=== PATIENT | female | born 1960 | race Caucasian/White ===

== ENCOUNTER 2019-04-30 01:51 | Emergency (ER) | payer OTHER ==
[~2019-04-30] VITALS: Ht 160 cm; Wt 45.4 kg
[~2019-04-30 01:51] MED LIST: ALBU90OI INH; ALBU90OI6 INH; AMIT50 PO; AMLO10 PO; AMOCLA875 PO; AMOX500 PO; Aspirin325 MG PO; BUPR150T2 PO; Budeprion Xl300 MG PO; Buspirone HCl5 MG PO; CEPH500 PO; FERROUS SULFATE PO; FLUSAL2505 INH; FLUT1DIS5 INH; FOLI1 PO; HYDACE5 PO; IBUP400; IBUP800 PO; LOSA50 PO; METERG.2 PO; METO25 PO; METTREX2.5 PO; MULVITMINE; NEOPOLHCSU; OXYACE5T PO; PENVK500 PO; PHENA200 PO; PRED20 PO; PRED5 PO; PROM25 PO; Percocet 5-3251 EACH PO; RXANTBENOT AU; RXHYDACE PO; RXPHEN200 PO; RXPROM25 PO; RXSULTRIDS PO; SULTRIDS PO; SULTRISS PO; TUDORZA PRESS400 MCG IH; TUDORZA PRESS400 MCG INH; XARELTO10 MG PO
[2019-04-30] MEDS ORDERED: METTREX2.5 PO (02:37)
[2019-04-30 02:42] LABS: Source, Urine Clean Catch
[2019-04-30 02:57] LABS: Appearance, Urine Clear (Clear); Bilirubin, Urine 3+ (Neg); Blood, Urine 5+ (Neg); Color, Urine Orange (P-Yellow); Glucose Qualitative, Urine Neg (Neg); Ketones, Urine Neg (Neg); Leukocyte Esterase, Urine 2+ (Neg); Nitrite, Urine Pos (Neg); Protein, Urine 3+ (Neg); Urobilinogen, Urine 4+ (Normal)
[2019-04-30 03:03] LABS: Bacteria Many /hpf; Mucus Light (0-Heavy); Squamous Epithelial Cells Few /hpf (Few)
[2019-04-30] MEDS ORDERED: Keflex500 MG PO (03:18)
== END 2019-04-30 03:34 | disposition home or self-care (01) ==
LOC: ER 01:51
PROVIDERS: Emergency Medicine
DX: N39.0 Urinary tract infection, site not specified (principal); J44.9 Chronic obstructive pulmonary disease, unspecified; I10 Essential (primary) hypertension; F17.210 Nicotine dependence, cigarettes, uncomplicated; Z79.899 Other long term (current) drug therapy
CPT/HCPCS: 81001; 87086; 99283

== ENCOUNTER → 2021-06-15 | Outpatient (CLI) | payer OTHER ==
[~2021-06-15] MED LIST changes: +Keflex500 MG PO
[2021-06-15 13:48] LABS: BASOPHILS ABSOLUTE AUTO 0.05 K/mm3 (0.00-0.23); BASOPHILS PERCENT AUTO 1 % (0-2); EOSINOPHILS ABSOLUTE AUTO 0.16 K/mm3 (0.00-0.68); EOSINOPHILS PERCENT AUTO 2 % (0-6); Hematocrit 42.6 % (33.0-51.0); Hemoglobin 13.5 g/dL (11.5-16.0); IMMATURE GRAN ABSOLUTE AUTO 0.04 K/mm3 (0.00-0.10); IMMATURE GRAN PERCENT AUTO 1 % (0-1); LYMPHOCYTES ABSOLUTE AUTO 1.46 K/mm3 (0.84-5.20); LYMPHOCYTES PERCENT AUTO 20 % (21-46); MONOCYTES ABSOLUTE AUTO 0.76 K/mm3 (0.16-1.47); MONOCYTES PERCENT AUTO 10 % (4-13); Mean Corpuscular HGB 33.8 pg (26.0-34.0); Mean Corpuscular HGB Conc 31.7 g/dL (31.5-36.5); Mean Corpuscular Volume 107 fL (80-100); Mean Platelet Volume 9.4 fL (9.1-12.4); NEUTROPHILS ABSOLUTE AUTO 4.96 K/mm3 (1.96-9.15); NEUTROPHILS PERCENT AUTO 67 % (41-73); Platelet Count 344 K/mm3 (150-400); RDW Coefficient Variation 15.3 % (11.7-14.2); RDW Standard Deviation 60.2 fL (35.1-46.3); White Blood Cell Count 7.43 K/mm3 (4.00-11.30)
== END | disposition home or self-care (01) ==
LOC: LAB SHORT 08:50 → LAB 08:50
PROVIDERS: Internal Medicine Rheumatology
DX: M05.9 Rheumatoid arthritis with rheumatoid factor, unspecified (principal)
CPT/HCPCS: 84450; 85025; 85651

== ENCOUNTER → 2021-09-14 | Outpatient (CLI) | payer OTHER ==
[2021-09-14 15:06] LABS: BASOPHILS ABSOLUTE AUTO 0.03 K/mm3 (0.00-0.23); BASOPHILS PERCENT AUTO 0 % (0-2); EOSINOPHILS ABSOLUTE AUTO 0.13 K/mm3 (0.00-0.68); EOSINOPHILS PERCENT AUTO 1 % (0-6); Hemoglobin 14.4 g/dL (11.5-16.0); IMMATURE GRAN ABSOLUTE AUTO 0.02 K/mm3 (0.00-0.10); IMMATURE GRAN PERCENT AUTO 0 % (0-1); LYMPHOCYTES ABSOLUTE AUTO 1.12 K/mm3 (0.84-5.20); LYMPHOCYTES PERCENT AUTO 12 % (21-46); MONOCYTES ABSOLUTE AUTO 0.72 K/mm3 (0.16-1.47); MONOCYTES PERCENT AUTO 8 % (4-13); Mean Corpuscular HGB 32.1 pg (26.0-34.0); Mean Corpuscular HGB Conc 31.3 g/dL (31.5-36.5); Mean Corpuscular Volume 103 fL (80-100); NEUTROPHILS ABSOLUTE AUTO 7.64 K/mm3 (1.96-9.15); NEUTROPHILS PERCENT AUTO 79 % (41-73); Platelet Count 343 K/mm3 (150-400); RDW Coefficient Variation 14.2 % (11.7-14.2); RDW Standard Deviation 54.2 fL (35.1-46.3); Red Blood Cell Count 4.48 M/mm3 (3.80-5.20); White Blood Cell Count 9.66 K/mm3 (4.00-11.30)
== END | disposition home or self-care (01) ==
LOC: LAB 08:10 → LAB SHORT 08:10
PROVIDERS: Internal Medicine Rheumatology
DX: M05.9 Rheumatoid arthritis with rheumatoid factor, unspecified (principal)
CPT/HCPCS: 84450; 85025; 85651

== ENCOUNTER → 2022-09-06 | Outpatient (CLI) | payer OTHER ==
[2022-09-06 18:50] LABS: BASOPHILS ABSOLUTE AUTO 0.04 K/mm3 (0.00-0.23); BASOPHILS PERCENT AUTO 1 % (0-2); EOSINOPHILS ABSOLUTE AUTO 0.16 K/mm3 (0.00-0.68); EOSINOPHILS PERCENT AUTO 3 % (0-6); Hematocrit 46.8 % (33.0-51.0); Hemoglobin 14.5 g/dL (11.5-16.0); IMMATURE GRAN ABSOLUTE AUTO 0.01 K/mm3 (0.00-0.10); IMMATURE GRAN PERCENT AUTO 0 % (0-1); LYMPHOCYTES ABSOLUTE AUTO 1.01 K/mm3 (0.84-5.20); LYMPHOCYTES PERCENT AUTO 18 % (21-46); MONOCYTES ABSOLUTE AUTO 0.66 K/mm3 (0.16-1.47); MONOCYTES PERCENT AUTO 12 % (4-13); Mean Corpuscular HGB 33.1 pg (26.0-34.0); Mean Corpuscular Volume 107 fL (80-100); Mean Platelet Volume 10.2 fL (9.1-12.4); NEUTROPHILS ABSOLUTE AUTO 3.75 K/mm3 (1.96-9.15); NEUTROPHILS PERCENT AUTO 67 % (41-73); Platelet Count 253 K/mm3 (150-400); RDW Standard Deviation 62.5 fL (35.1-46.3); Red Blood Cell Count 4.38 M/mm3 (3.80-5.20); White Blood Cell Count 5.63 K/mm3 (4.00-11.30)
[2022-09-06 21:49] LABS: Albumin, Blood 3.3 g/dL (3.4-5.0); Albumin/Globulin Ratio 0.9 (0.8-1.8); Bilirubin, Total 0.3 mg/dL (0.1-1.0); Bun/Creatinine Ratio 19.6 (12.0-20.0); Calcium, Blood 9.1 mg/dL (8.5-10.1); Creatinine, Blood 0.51 mg/dL (0.40-1.00); Globulin, Blood 3.8 g/dL (2.2-4.0); Potassium, Blood 3.7 mmol/L (3.5-5.5); Total Protein, Blood 7.1 g/dL (6.4-8.2)
== END ==
LOC: LAB 15:43 → LAB SHORT 15:43
PROVIDERS: Internal Medicine Rheumatology
DX: M05.9 Rheumatoid arthritis with rheumatoid factor, unspecified (principal)
CPT/HCPCS: 80053; 85025; 85651

== ENCOUNTER 2022-11-30 19:08 | Inpatient (IN) | payer OTHER ==
[~2022-11-30] VITALS: Ht 170.2 cm; Wt 42.3 kg
[2022-11-30 19:27] LABS: BASOPHILS ABSOLUTE AUTO 0.04 K/mm3 (0.00-0.23); BASOPHILS PERCENT AUTO 1 % (0-2); EOSINOPHILS ABSOLUTE AUTO 0.01 K/mm3 (0.00-0.68); EOSINOPHILS PERCENT AUTO 0 % (0-6); Hematocrit 45.4 % (33.0-51.0); Hemoglobin 14.8 g/dL (11.5-16.0); IMMATURE GRAN ABSOLUTE AUTO 0.04 K/mm3 (0.00-0.10); IMMATURE GRAN PERCENT AUTO 1 % (0-1); LYMPHOCYTES ABSOLUTE AUTO 0.82 K/mm3 (0.84-5.20); LYMPHOCYTES PERCENT AUTO 9 % (21-46); MONOCYTES ABSOLUTE AUTO 0.66 K/mm3 (0.16-1.47); MONOCYTES PERCENT AUTO 8 % (4-13); Mean Corpuscular HGB 35.4 pg (26.0-34.0); Mean Corpuscular HGB Conc 32.6 g/dL (31.5-36.5); Mean Corpuscular Volume 109 fL (80-100); Mean Platelet Volume 11.2 fL (9.1-12.4); NEUTROPHILS PERCENT AUTO 82 % (41-73); Platelet Count 262 K/mm3 (150-400); RDW Coefficient Variation 15.3 % (11.7-14.2); RDW Standard Deviation 60.9 fL (35.1-46.3); Red Blood Cell Count 4.18 M/mm3 (3.80-5.20); White Blood Cell Count 8.77 K/mm3 (4.00-11.30)
[2022-11-30 19:49] LABS: Base Excess Venous -3.8 mmol/L; Bicarbonate Venous 20.5 mmol/L (24.0-30.0); PCO2 Venous 59.3 mmHg (38-42); pH Blood Venous 7.21 (7.34-7.37)
[2022-11-30 20:45] LABS: Influenza A, PCR NEGATIVE (NEGATIVE); Influenza B, PCR NEGATIVE (NEGATIVE); Resp Syncytial Virus, PCR NEGATIVE (NEGATIVE); SARS-Cov-2 (COVID-19) PCR, MMC NEGATIVE (NEGATIVE)
[2022-11-30 21:10] LABS: Albumin, Blood 3.3 g/dL (3.4-5.0); Albumin/Globulin Ratio 0.9 (0.8-1.8); Bilirubin, Total 0.4 mg/dL (0.1-1.0); Bun/Creatinine Ratio 19.7 (12.0-20.0); Creatinine, Blood 0.61 mg/dL (0.40-1.00); Globulin, Blood 3.7 g/dL (2.2-4.0); Potassium, Blood 3.8 mmol/L (3.5-5.5)
[2022-11-30 21:33] LABS: Base Excess Venous -2.2 mmol/L; Bicarbonate Venous 21.8 mmol/L (24.0-30.0); PCO2 Venous 57.4 mmHg (38-42); pH Blood Venous 7.24 (7.34-7.37)
--- NOTE | 2022-11-30 23:20 | NUR ---
PT TRANSFERRED FROM ER. REPORT RECIEVED FROM TEETEE HERNANDES. PT IS A&O X4. BIPAP IN PLACE AND PT TOLERATING. RR 20'S, SPO2 >94%. IV ACCESS 20GA RAC AND 20GA BILATERAL FOREARMS. PRECEDEX 0.2MCG/KG/HR. NS 100MLS/HR.
[2022-12-01 00:19] LABS: Base Excess Venous -3.3 mmol/L; Bicarbonate Venous 21.6 mmol/L (24.0-30.0); PCO2 Venous 43.1 mmHg (38-42); pH Blood Venous 7.33 (7.34-7.37)
[2022-12-01 03:26] LABS: BASOPHILS ABSOLUTE AUTO 0.02 K/mm3 (0.00-0.23); BASOPHILS PERCENT AUTO 0 % (0-2); EOSINOPHILS PERCENT AUTO 0 % (0-6); Hematocrit 41.1 % (33.0-51.0); Hemoglobin 13.1 g/dL (11.5-16.0); IMMATURE GRAN ABSOLUTE AUTO 0.07 K/mm3 (0.00-0.10); IMMATURE GRAN PERCENT AUTO 1 % (0-1); LYMPHOCYTES ABSOLUTE AUTO 0.16 K/mm3 (0.84-5.20); LYMPHOCYTES PERCENT AUTO 3 % (21-46); MONOCYTES ABSOLUTE AUTO 0.08 K/mm3 (0.16-1.47); MONOCYTES PERCENT AUTO 1 % (4-13); Mean Corpuscular HGB 34.9 pg (26.0-34.0); Mean Corpuscular HGB Conc 31.9 g/dL (31.5-36.5); Mean Corpuscular Volume 110 fL (80-100); Mean Platelet Volume 10.1 fL (9.1-12.4); NEUTROPHILS ABSOLUTE AUTO 5.68 K/mm3 (1.96-9.15); NEUTROPHILS PERCENT AUTO 95 % (41-73); Platelet Count 169 K/mm3 (150-400); RDW Coefficient Variation 15.1 % (11.7-14.2); Red Blood Cell Count 3.75 M/mm3 (3.80-5.20); White Blood Cell Count 6.01 K/mm3 (4.00-11.30)
[2022-12-01 03:36] LABS: Bun/Creatinine Ratio 21.6 (12.0-20.0); Calcium, Blood 8.4 mg/dL (8.5-10.1); Creatinine, Blood 0.46 mg/dL (0.40-1.00); Potassium, Blood 4.3 mmol/L (3.5-5.5)
--- NOTE | 2022-12-01 06:15 | NUR ---
PT REQUESTS A BREAK FROM BIPAP. PT SWITCHED TO 3L O2 VIA NC. PRECEDEX ON SB.
--- NOTE | 2022-12-01 06:34 | NUR ---
SUMMARY PT TOLERATED BIPAP UNTIL 15 THEN WAS SWITCHED TO 3L O2 VIA NC. RR 20'S, SPO2 >94%. PRECEDEX 0.2MCG/KG/HR. NS 100MLS/HR. CONTINUOUS CARDIAC MONITORING. HR 100-120. BRIEF EPISODE OF BRADYCARDIA IN THE 40'S. PRECEDEX PUT ON SB. SBP STABLE IN 130'S. MAP >65. PT USING BED CARNES. ABLE TO MAKE NEEDS KNOWN AND USES CALL LIGHT APPROPRIATELY. ASSESSMENTS REMAIN UNCHANGED.
--- NOTE | 2022-12-01 07:44 | NUR ---
UPON REVIEWING PATIENTS RHYTHM, NOTED TO HAVE INVERTED T WAVES. SWITCHED AT AROUND 0130. EKG DONE. WILL REVIEW WITH THIS AM. PT SLEEPING, AWAKENED EASILY FOR EKG, DENIES ANY COMPLAINTS, THANKFUL TO NOT BE WEARING THAT MASK, SHE SAYS.
--- NOTE | 2022-12-01 07:55 | NUR ---
CALL TO FOR UPDATE R/T EKG. PT CONTINUES TO DENY ANY SHORTNESS OF BREATH, ALTHOUGH HER BREATHING LOOKS LABORED. HER SATS ARE MID 90S. HEART RATE VARYING FROM 90-110'S. BP STABLE.
[2022-12-01 09:22] LABS: Anti-Xa UFH, PHA Monitoring <0.10 IU/mL; International Normalized Ratio 0.99; Prothrombin Time Results 10.4 Sec (9.7-11.5)
--- NOTE | 2022-12-01 10:03 | NUR ---
CARMENZA'S FAMILY HAS ARRIVED, UPDATE GIVEN TO FAMILY. PT CONTINUES TO STATE IMPROVEMENT IN HER SYMPTOMS SINCE ARRIVING AT THE HOSPITAL, FAMILY CONFIRMS. PT CONTINUES TO DENY ANY CHEST PAIN. HEART RATE CONTINUES IN THE 100'S. BP REMAINS STABLE, HEPARIN GTT HAS BEEN STARTED.
--- NOTE | 2022-12-01 10:27 | NUR ---
Supportive visit this AM. Spoke with Primary RN Rosette and discussed case. Pt with abnormal EKG and elevated troponins. Pt denies pain. Pt resting in bed and is A&OX4. Pt's SO and son at bedside. Offered therapeutic listening as Pt reports breathing has improved and discusses the anxiety she was experiencing when she first came to the hospital. She reports anxiety has improved. She states being happy in not having to wear the BIPAP mask any longer. Continued supportive visit and brief review of plan of care. Pt agreeable to continued PC visits. Palliative Care will remain available
--- NOTE | 2022-12-01 13:56 | NUR ---
DR. MARCO LARA ROUNDED ON PT. DISCUSSED NEW HEART FAILURE AND PLAN OF CARE. PLANS TO MEDICALLY OPTIMIZE PT IN REGARDS TO BLOOD PRESSURE AND HEART RATE CONTROL WITH PROBABLE ANGIOGRAM IN THE NEXT DAY OR TWO. DISCUSSED HIGH RISK ASSOCIATED WITH ANGIOGRAM FOR THIS PT RELATED TO PT BEING UNDERWEIGHT. PT VERBALIZES UNDERSTANDING OF PLAN OF CARE.
--- NOTE | 2022-12-01 14:46 | NUR ---
HERE TO SEE PATIENT IN CONSULT. PT EXPRESSED SOME QUESTIONS TO BINDERY ASSISTANT AFTER HIS VISIT, QUESTIONS ANSWERED. PT UP TO BSC WITH ASSISTANCE, PT DOES GET SHORT OF BREATH WITH EXERTION. HEART RATE CLIMBS TO 120. MEDICATED PER DR. LARA'S ORDERS, ATTEMPTING TO KEEP SBP @ 140 OR BELOW. PT GIVEN NICOTINE PATCH TO WHICH SHE EXPRESSED THANKFULNESS SHE WAS "STARTING TO GET CRANKY". LEFT PIV SITE WITH HEPARIN INFUSING HAS SMALL BLOOD LEAK UPON RETURN TO BED. ASSESSED.
--- NOTE | 2022-12-01 15:46 | NUR ---
PT RECEIVING BREATHING TREATMENT, SATS IN MID-LOW 80S DURING TREATMENT. PT STATES SHE NEEDS TO USE THE BSC. LOOKS AND FEELS SHORT OF BREATH, PT'S OXYGEN TURNED UP, HEART RATE REMAINS AT 100, SATS NOW 98% WITH PATIENT LYING ON HER SIDE, FAN ON BEDSIDE TABLE.
--- NOTE | 2022-12-01 16:13 | NUR ---
PT NOTED TO HAVE A SIGNIFICANT BRADYCARDIA TO 36 BEATS, UPON PT ASSESSMENT SHE WAS SLEEPING AND DENIES FEELING ANY CHEST PAIN.
--- NOTE | 2022-12-01 17:57 | NUR ---
AFTER DINNER CARMENZA WANTED TO LAY BACK DOWN, NOT FLAT BUT RECLINED. HER SATS WERE STAYING IN THE LOW 80S. TITRATED UP THE OXYGEN TO 9L HFNC, WITH NO CHANGE. THEN INCREASED TO 15L, PT HOVERING AT 89%. RT CALLED FOR ASSISTANCE. PT IS REFUSING TO PUT ON THE BIPAP AT THIS TIME. ABLE TO GET SATS TO MAINTAIN AT 90% FOR NOW.
--- NOTE | 2022-12-01 18:13 | NUR ---
CARMENZA MEDICATED WITH HER DOSE OF SOLU-MEDROL AND A DOSE OF FENTANYL 25MCG. HER SATS ARE CURRENTLY AT 97% AND HER BREATHING IS EASED. BP IS DOWN TO 121/61. HEART RATE REMAINS LOW 100'S. COUGH IS MOIST, OCC RETURNS CLEAR/WHITE. CONTINUES TO DENY ANY CHEST PAIN.
--- NOTE | 2022-12-01 18:36 | NUR ---
PT STATES THAT HER HEADACHE IS IMPROVED SINCE THE FENTANYL DOSE. BREATHING IS BETTER, 15L TURNED DOWN TO 10L AND SATS 98%.
--- NOTE | 2022-12-01 20:18 | NUR ---
ASSUMED CARE OF PT AT 1900 PT RESTING IN BED AWAKE WITH BOYFRIEND MELISSA AT BEDSIDE. NEURO- A/O X4 RESP- 10L HIGH FLOW NC IN PLACE WITH SPO2 @ 95%. PT HAS FREQUENT CONGESTED COUGH WHILE THIS NURSE IN ROOM. PT REPORTS THIS IS BASELINE AT HOME. DYSPNEIC PT USED BEDSIDE COMMODE WITH SPO2 STAYING >92%. CARDIAC-HYPERTENSIVE WITH SBP BETWEEN 130'S-150'S. HR 110'S. GI,- PT IS CONTINENT OF BOWEL AND BLADDER. PT USED BEDSIDE COMMODE AT THIS TIME. HEPARIN RUNNING @ 15MCG/KG/HR. SEE FULL ASSESSMENT FOR FURTHER INFORMATION.
--- NOTE | 2022-12-02 00:34 | NUR ---
FALL AT APPROX 2310 PT WAS BOOSTED UP IN BED BY THIS RN AND RESP THERAPIST WHOM WAS THERE TO GIVE BREATHING TREATMENT. THIS RN THEN LEFT THE ROOM TO ALLOW RT TO DO TREATMENT NEEDED. AT APPROX 2315 THIS RN HEARD PT YELLING OUT LOUDLY. WHEN I ARRIVED IN PT ROOM PT WAS SITTING ON THE FLOOR ON THE LEFT SIDE OF THE PT BED. RESP THERAPY WAS IN ROOM STANDING BETWEEN PT AND MONITOR AT TIME OF FALL. THIS RN ASSESSED AND EVALUATED PT. PT STATED "I HAVE TO PEE" MULTIPLE TIMES. PT THEN URINATED ON THE FLOOR. PT WAS THEN ASSISTED TO BED BY THIS RN AND EH HERNANDES. PT WAS BLE TO GET UP ON HER OWN WITH LITTLE TO NO ASSIST NEEDED. PT DENIED PAIN POST FALL. PT STATED "I DID NOT HIT ANYTHING BUT MY KNEES AND HANDS." PT ALSO STATED " I WAS TRYING TO MOVE MYSELF IN THE BED". PT CONFIRMED WITH THIS RN THAT SHE WAS NOT TRYING TO GET OUT OF BED AT THE TIME OF FALL. NEURO ASSESSMENT DONE WITH NO CHANGES FROM PRIOR ASSESSMENT AT 1930. NO NEW BRUISING OR BLEEDING POST FALL. SLIGHT RESPIRATORY DISTRESS NOTED, HOWEVER NO CHANGE FROM BASELINE UPON EXERTION. BP, HR STABLE AND WITHIN PT NORMAL LIMITS. DR ARROYO, JEISON LEAD RN, AND OSWALD GELLER NURSING MAT PACKER NOTIFIED OF FALL AND OUTCOME.
[2022-12-02 02:13] LABS: PCO2 Arterial 61.4 mmHg (35-45); PO2 Arterial 156 mmHg (80-100)
[2022-12-02 02:15] LABS: pH Blood Arterial 7.29 (7.35-7.45)
--- NOTE | 2022-12-02 02:41 | NUR ---
APPROX 0150 PT RESULTED IN BRADYCHARDIC EPISODE. PT NOT AROUSED BY SOUNDS, STERNAL RUB GIVEN 3 TIMES WITH VERY MINIMAL RESPONSE. PUPILS WITH VERY LITTLE TO ALMOST PINPOINT AT THAT TIME. HR 50'S-60'S AND SPO2 IN MID 70'S%. RT CALLED TO PT ROOM FOR BIPAP ISSUES. 0153 DR ARROYO INFORMED OF PT SITUATION. AT THIS TIME PT STARTED TO AROUSE AND TALK. PUPILS BACK TO BASELINE. ABG ORDERED STAT. 0215 CR[facility] RESULTS CALLED FROM LAB PH OF 7.29. [address] ARROYO REGARDING CRITICAL PH OF 7.29. CONFIRMED CHANGE OF MASK AND BIPAP MACHINE. LESS LEAK IN MASK. VITALS STABLE AND WITHIN PT NORMAL LIMITS. NO NEW ORDERS AT THIS TIME.
--- NOTE | 2022-12-02 06:05 | NUR ---
END OF SHIFT SUMMARY PT DID NOT REST WELL MOST OF THE NIGHT. READ PREVIOUS NOTES ON HYPOXIC EPISODE AND EVENTS PERTAINING. NEURO- A/O X4 NO CHANGES THROUGH THE NIGHT. RESP- SPO2 >92% WHILE ON BIPAP. PT COUGHS FREQUENTLY ENDING WITH SPO2 <90%. SLOWLY INCREASES AFTER COUGHING EPISODE ENDS. CARDIAC- BP AND HR WITHIN PT NORMAL LIMITS. SBP NOW AT 130'S. WHEN SLEEPING PT SBP 110'S. HR NOW IN 90'S, BUT WILL TREND HIGHER AT TIMES. GI,- PT IS CONTINENT OF BOWEL AND BLADDER. PT IS ABLE TO GET UP TO COMMODE WITH STANDBY ASSIST. HEP RUNNING AT 15 MCG/KG/MIN INTO POWERGLIDE IN LEFT UPPER ARM. WILL CONTINUE TO MONITOR UNTIL REPORT GIVEN TO AM RN.
[2022-12-02 06:18] LABS: BASOPHILS ABSOLUTE AUTO 0.01 K/mm3 (0.00-0.23); BASOPHILS PERCENT AUTO 0 % (0-2); EOSINOPHILS PERCENT AUTO 0 % (0-6); Hematocrit 41.1 % (33.0-51.0); Hemoglobin 13.2 g/dL (11.5-16.0); IMMATURE GRAN ABSOLUTE AUTO 0.02 K/mm3 (0.00-0.10); IMMATURE GRAN PERCENT AUTO 0 % (0-1); LYMPHOCYTES ABSOLUTE AUTO 0.34 K/mm3 (0.84-5.20); LYMPHOCYTES PERCENT AUTO 4 % (21-46); MONOCYTES PERCENT AUTO 5 % (4-13); Mean Corpuscular HGB 35.2 pg (26.0-34.0); Mean Corpuscular HGB Conc 32.1 g/dL (31.5-36.5); Mean Corpuscular Volume 110 fL (80-100); Mean Platelet Volume 10.9 fL (9.1-12.4); NEUTROPHILS ABSOLUTE AUTO 6.99 K/mm3 (1.96-9.15); NEUTROPHILS PERCENT AUTO 90 % (41-73); Platelet Count 155 K/mm3 (150-400); RDW Coefficient Variation 15.1 % (11.7-14.2); RDW Standard Deviation 60.3 fL (35.1-46.3); Red Blood Cell Count 3.75 M/mm3 (3.80-5.20); White Blood Cell Count 7.76 K/mm3 (4.00-11.30)
[2022-12-02 06:30] LABS: Bun/Creatinine Ratio 32.6 (12.0-20.0); Calcium, Blood 9.2 mg/dL (8.5-10.1); Creatinine, Blood 0.64 mg/dL (0.40-1.00); Potassium, Blood 3.9 mmol/L (3.5-5.5)
--- NOTE | 2022-12-02 08:26 | NUR ---
PT WAS EATING HER BREAKFAST AND NEEDED TO USE THE RESTROOM. UP TO THE BSC, SATS DOWN TO 74%. PT VISIBLY SHORT OF BREATH AND C/O INABILITY TO BREATHE. PT ASSISTED BACK TO BED BY 2 RN'S AND PLACED ON BIPAP 14/8 35%. PT RECOVERED WITHIN A FEW MOMENTS BACK TO 93%. PT VERBALLY UPSET AND BARGAINING WITH THE USE OF THE BIPAP. ENCOURAGED TO RECOVER AND THEN BE ABLE TO EAT HER BREAKFAST.
--- NOTE | 2022-12-02 09:37 | NUR ---
PT OFF BIPAP TO BE ABLE TO EAT, PT BEGINS TO COUGH. LUNGS TIGHT, COUGH MOIST. ABLE TO TAKE MEDS, COUGH CONTINUES. PT STATES SHE WANTS TO EAT. IRRITATED WITH THE BLOOD PRESSURE CUFF. COUGH CONTINUES. TOLD SHE MAY NEED TO RETURN TO THE BIPAP. SLOWS AND TRIES TO EAT MORE.
--- NOTE | 2022-12-02 12:55 | NUR ---
CARMENZA IS RESTING QUIETLY ON THE BIPAP. SHE WAS VISIBLY SHAKEN AFTER SPEAKING WITH ABOUT HER CURRENT CONDITION AND PROGNOSIS. SHE WAS MEDICATED WITH FENTANYL THEN ORDERED A DOSE OF ATIVAN FOR THE PATIENT. SHE HAS HAD 2 EPISODES OF SPONTANEOUS BRADYCARDIA TO 30'S AND UPON ENTERING THE ROOM THE PT IS STARING AT THE MONITOR AND HER RATE IS BACK TO 80-90'S. SHE DENIES ANY PAIN OR INCREASED SHORTNESS OF BREATH DURING THE EPISODES. AWARE.
--- NOTE | 2022-12-02 13:18 | NUR ---
Pt resting in bed with her eyes closed and wearing BIPAP. Pt does not wake to moderate level verbal stimuli. Spoke with Primary RN Rosette and discussed case. Pt received difficult news regarding her COPD today. Pt may benefit from supportive visit and goals of care conversation when she wakes. Palliative Care will F/U at a later time when Pt is awake
--- NOTE | 2022-12-02 13:41 | NUR ---
CARMENZA CONTINUES TO REST QUIETLY, HEART RATE IN THE 70'S, BP 109/54, SATS 98% ON THE BIPAP. NO FURTHER BRADYCARDIA.
--- NOTE | 2022-12-02 16:56 | NUR ---
CARMENZA TAKEN TO CT FOR CTA AT 1620. SHE WAS ON 6L HFNC, SHE MAINTAINED HER SATS >95% THE ENTIRE TIME. SHE WAS ABLE TO HOLD HER HANDS OVER HER HEAD FOR THE EXAM. CONTINUED TO BE WITHOUT PAIN.
--- NOTE | 2022-12-02 18:08 | NUR ---
CARMENZA CONTINUES TO BE ALERT AND ORIENTED, ASKING APPROPRIATE QUESTIONS AND RETAINING INFORMATION GIVEN TO HER. RESP: SHE CONTINUES BETWEEN HFNC 6-9L AND WEARING THE BIPAP 14/8 35%. HER LUNGS REMAIN DIMINISHED AND TIGHT. HER COUGH CONTINUES. CTA DONE, AWAIT FINAL. CV: HEART RATE FROM 70-90 MOST OF THE DAY. SBP < 140. GI/: ABLE TO GET TO BSC, MOST RECENTLY ABLE TO MAINTAIN HER SAT WHILE UP. SKIN: REMAINS ECCHYMOTIC T/O UPPER EXTREMITIES. PIV TO LEFT FOREARM WITH HEPARIN INFUSING @ 15U/KG, RFA WITH PIV, SALINE LOCKED. MENTAL: PT WAS VERY EMOTIONAL AFTER FIRST TALKING WITH . SHE HAS DONE REALLY WELL ADJUSTING SINCE THAT TIME, SHE UNDERSTANDS SHE NEEDS TO WEAR THE BIPAP OFTEN POSSIBLE AT THIS TIME.
--- NOTE | 2022-12-02 19:15 | NUR ---
ASSUMED CARE OF PT AT 1900 PT AWAKE SITTING UP IN BED WITH BOYFRIEND AT HER SIDE. A/O X4. HEP @ 15 MCG 10 LPM NC HIGH FLOW. SPO2 >92%. BP AND HR STABLE. BED IN LOW POSITION, 2 SIDE RAILS UP, CALL LIGHT WITHIN REACH. PT IS CAPABLE OF USING CALL LIGHT TO MAKE NEEDS KNOWN. PT IS ABLE TO USE BEDSIDE COMMODE WITH STANDBY ASSIST. PT IS AWARE TO CALL FOR BATHROOM NEEDS. SEE ASSESSMENT FOR FURTHER INFORMATION
[2022-12-03 04:38] LABS: PCO2 Arterial 63.9 mmHg (35-45); PO2 Arterial 89.1 mmHg (80-100); pH Blood Arterial 7.31 (7.35-7.45)
--- NOTE | 2022-12-03 04:38 | NUR ---
0410 PT HAD KAIT EPISODE WITH HR IN 40'S AND RR DECREASE. CRASH CART ON STANDBY. RT CALLED TO ROOM. PT ON BIPAP ALL NIGHT EXCEPT FOR 30 MINUTE BREAK THAT LED TO DECREASED SATS IN MID 80'S. PT CAME TO WITHIN 2 MINUTES OF EPISODE. PT VERY IRRITABLE AND REFUSING CERTAIN STAFF OF CARE INCLUDING RT. DR ARROYO NOTIFIED AND SHORTLY AFTER WAS AT BEDSIDE WITH PT ABG WAS INITIATED BY RT. PT IS NOW STABLE BP 98/72 HR 78, RR 23, SPO2 97. PT REQUESTED BOYFRIEND AT BEDSIDE. PHONE NUMBER CALLED AND CASIMIRO (SON) IS TO CONTACT MELISSA TO TELL HIM OF PT REQUEST.
--- NOTE | 2022-12-03 05:44 | NUR ---
PT BOYFRIEND MELISSA ARRIVED AND WAS UPDATED ON PT STATUS. QUESTIONS WERE ANSWERED ABOUT ECHO PROCEDURE BEING DONE TODAY AND WHY THE PT IS NPO. PT IS REQUESTING TO HAVAE THE ECHO CANCELED D/T HER EXTREME THIRST. PT WAS COUNSELED ON THE EVENTS THAT WOULD COME IF SHE DID NOT WANT TREATMENT. PT ALSO COUNSELED THAT SHE NEEDS TO MAKE THE DECISION ON WHETHER SHE WANTS TO BE TREATED OR NOT. THIS RN SPECIFICALLY STATED TO THE PATIENT THAT THE DOCTOR CANNOT BE CALLED IN EVERY HOUR TO TALK WITH HER REGARDING HER FREQUENT STATUS CHANGES.
--- NOTE | 2022-12-03 06:00 | NUR ---
END OF SHIFT SUMMARY PT WORE BIPAP AND RESTED MOST OF THE NIGHT. ONLY ONE BREAK FROM BIPAP FOR 30 MINUTES WITH SIGNIFICANT DECREASE IN SPO2. PRN ATIVAN USED TO HELP WITH ANXIETY X2 THIS SHIFT. RESP- SPO2 >92% ON BIPAP. SPO2 @ MID 80% ON HIGH FLOW NASAL CANULA. SEE PRIOR NOTES ON DESAT AND KAIT EPISODE. LUNG SOUNDS HAVE NO SIGNIFICANT CHANGES THIS SHIFT. CARDIAC- SPB 90'S-110'S THROUGHOUT SHIFT. SIGNIFICANT CHANGES HAPPEN BETWEEN SLEEP AND WAKEFULNESS. PULSES STRONG IN ALL AREAS. GI, - NO BM THIS SHIFT. PT UP ONLY ONE TIME THIS SHIFT TO BEDSIDE COMMODE WITH STANDBY ASSIST. TKO @ 10 MLS/HR. HEPARIN DC'D PER ORDERS WITH CTA NEG FOR PE. WILL CONTINUE TO MONITOR PT UNTIL REPORT GIVEN TO AM RN.
[2022-12-03 08:01] LABS: BASOPHILS ABSOLUTE AUTO 0.01 K/mm3 (0.00-0.23); BASOPHILS PERCENT AUTO 0 % (0-2); EOSINOPHILS PERCENT AUTO 0 % (0-6); Hematocrit 41.1 % (33.0-51.0); Hemoglobin 12.8 g/dL (11.5-16.0); IMMATURE GRAN ABSOLUTE AUTO 0.03 K/mm3 (0.00-0.10); IMMATURE GRAN PERCENT AUTO 0 % (0-1); LYMPHOCYTES ABSOLUTE AUTO 0.31 K/mm3 (0.84-5.20); LYMPHOCYTES PERCENT AUTO 4 % (21-46); MONOCYTES ABSOLUTE AUTO 0.46 K/mm3 (0.16-1.47); MONOCYTES PERCENT AUTO 6 % (4-13); Mean Corpuscular HGB 34.3 pg (26.0-34.0); Mean Corpuscular HGB Conc 31.1 g/dL (31.5-36.5); Mean Corpuscular Volume 110 fL (80-100); NEUTROPHILS ABSOLUTE AUTO 7.41 K/mm3 (1.96-9.15); NEUTROPHILS PERCENT AUTO 90 % (41-73); Platelet Count 163 K/mm3 (150-400); RDW Coefficient Variation 15.5 % (11.7-14.2); RDW Standard Deviation 61.4 fL (35.1-46.3); Red Blood Cell Count 3.73 M/mm3 (3.80-5.20); White Blood Cell Count 8.22 K/mm3 (4.00-11.30)
--- NOTE | 2022-12-03 08:05 | NUR ---
ASSUMED CARE / DR LARA: REPORT RECEIVED FROM AMADOR Vanessa RN. ASSUMED CARE OF THIS PT AT APPROX 0700. ON ASSESSMENT, THE PT IS AWAKE, A&O TO SELF, PERSON & FOLLOWING DIRECTIONS. SHE EXPRESSES FRUSTRATION IN REGARDS TO BEING NPO W/ PENDING CARDIAC ANGIOGRAM. STS THAT SHE "JUST WANTS TO GO HOME" INSTEAD. HER BOYFRIEND, MELISSA, IS AT BEDSIDE THIS AM & REMINDS HER THAT SHE NEEDS TO STAY SO THAT SHE DOES NOT GET WORSE AT HOME. LS ARE TIGHT T/O, COARSE & WHEEZING IN THE BASES. PT ON 8L HI-FLOW NC W/ O2 SATS > 925 ON AVG, DESATS TO 88% W/ COUGHING. STS COUGH OCCASIONALLY PRODUCTIVE, SPUTUM NOT VISUALIZED. MONITOR SHOWS SR-ST W/ HR 80-100s, INCREASED W/ ANXIETY OR AGITATION. PT HAS NO GI COMPLAINTS OTHER THAN THIRST & DRY MOUTH WHILE NPO. MOIST MOUTH SWABS PROVIDED & SMALL SIP OF WATER GIVEN W/ AM MEDS PER EMAR, PT TOLERATED WELL. VOIDS URINE W/O DIFFICULTY USING BSC, 1 STAFF ASSIST. SKIN CONDITION OVERLL FRAGILE, ECCHYMOSIS SCATTERED TO BUE. Q2H REPOSITIONING TO MAINTAIN SKIN INTEGRITY. DR LARA AT BEDSIDE THIS AM. HE IS UNSURE IF THE PT's RESPIRATORY STATUS WILL BE SUFFICIENT FOR AN ANGIOGRAM TO BE COMPLETED THIS AM. THIS RN STS THAT THE PT TOLERATES BIPAP WELL W/ IMPROVED DYSPNEA & PROVIDER STS THAT HE WILL TAKE HER TO THE SALES DRIVER & USE BIPAP DURING THE PROCEDURE. DMITRI Jackman, RT, AWARE OF THIS & IS AVAILABLE TO ASSIST. THE PT HAS BEEN CONSENTED BY DR LARA. THIS RN HAS CONTACTED THE SALES DRIVER TO MAKE ARRANGEMENTS & THEY WILL CONTACT THIS RN APPROX 15-20 MINS BEFORE PROCEDURE START TIME SO THAT RT CAN BE NOTIFIED TO COORDINATE. NO OTHER CHANGES AT THIS TIME. WILL CONTINUE TO MONITOR & UPDATE NEEDED.
[2022-12-03 08:17] LABS: Bun/Creatinine Ratio 47.4 (12.0-20.0); Calcium, Blood 9.2 mg/dL (8.5-10.1); Creatinine, Blood 0.55 mg/dL (0.40-1.00)
--- NOTE | 2022-12-03 09:40 | NUR ---
DR ROMERO: PROVIDER AT BEDSIDE TO SUMANTH PT THIS AM. DISCUSSED PLAN FOR CORONARY ANGIOGRAM TODAY & LIKELY NEED FOR BIPAP THERAPY DURING THAT TIME R/T INCREASED DYSPNEA & ANXIETY AT TIMES. PRECEDEX DRIP ORDERED TO START PRIOR TO PROCEDURE TO HELP W/ ANXIETY & WORK OF BREATHING. NO OTHER CHANGES AT THIS TIME.
--- NOTE | 2022-12-03 12:05 | NUR ---
ELECTRICAL ENGINEER MEP: PT OUT OF ROOM TO ELECTRICAL ENGINEER MEP AT APPROX 1205. DMITRI D, RT, & ELECTRICAL ENGINEER MEP STAFF ACCOMPANYING PT AT THIS TIME.
--- NOTE | 2022-12-03 13:20 | NUR ---
RETURN FROM TRUCK BODY BUILDER APPRENTICE: PT BACK TO ROOM FROM ANGIOGRAM AT APPROX 1300. THIS RN AT LUNCH & SAAD Velarde, AGRICULTURAL PRODUCE WASHER, HAS RECEIVED REPORT & SETTLED THE PT IN. SHE HAS BEEN INSTRUCTED TO NOT USE RIGHT ARM W/ TR BAND IN PLACE. TR BAND PLACED AT 1240 W/ 10 CC AIR. PT NEEDS FREQUENT REMINDERS OF RIGHT ARM PRECAUTIONS. MELISSA, PT's BOYFRIEND, IS AWARE OF PRECAUTIONS & HELPS REMIND THE PT. SITE CURRENTLY WNL; NO BLEEDING, BRUISING OR HEMATOMA FORMATION NOTED. WILL BEGIN DEFLATION PROCESS 2 HRS AFTER TR BAND PLACEMENT, PER ORDERS.
--- NOTE | 2022-12-03 14:23 | NUR ---
DR LARA UPDATE: PROVIDER HAS CONTACTED THIS RN W/ UPDATE POST-ANGIOGRAM. PT's CORONARY ARTERIES ARE CLEAR. HE HAS CONFIRMED THAT THE PT IS ORDERED TO HAVE METOPROLOL & LOSARTAN. ORDERS FOR LASIX ALSO PLACED. HE WILL BE SIGNING OFF THIS PT's CASE & WOULD LIKE HER TO FOLLOW-UP WITH CARDIOLOGY AN OUTPATIENT APPROX 4 WKS AFTER DISCHARGING. PT MAY BE DISCHARGED AT DISCRETION OF HOSPITALIST SERVICE FOLLOWING. NO OTHER CHANGES AT THIS TIME.
--- NOTE | 2022-12-03 17:52 | NUR ---
SHIFT SUMMARY: NO ACUTE CHANGES SINCE PRIOR UPDATES. PT REMAINS A&O BUT FORGETFUL AT TIMES, REQUIRING FREQUENT REORIENTATION. DOES NOT USE CALL LIGHT CONSISTENTLY & OCCASIONALLY WILL YELL OUT FOR HELP. BOYFRIEND, MELISSA, REMAINS AT BEDSIDE & IS HELPFUL IN REDIRECTING THE PT. OVERALL HER ANXIETY & AGITATION HAVE IMPROVED SINCE BEING ALLOWED TO HAVE FOOD & WATER AFTER ANGIOGRAM. PRECEDEX TITRATED DOWN TO 0.1 MCG/KG/HR CURRENTLY. LS TIGHT, COARSE & WHEEZING. LITTLE IMPROVEMENT NOTED W/ SCHEDULED NEBS PER RT. PT CURRENTLY ON 5L NC W/ O2 SATS > 92% ON AVG, DESATS TO 86% W/ PROLONGED COUGHING EPISODES. MONITOR SHOWS SR W/ HR 70-90s, BP STABLE. PT HAS NO GI COMPLAINTS, TOLERATING PO INTAKE WELL. VOIDS URINE USING BSC W/O DIFFICULTY. SKIN CONDITION OVERALL INTACT, ECCHYMOTIC AREAS SCATTERED TO BUE. RIGHT RADIAL PUNCTURE SITE W/ TR BAND IN PLACE. APPROX 8 CC REMOVED PRIOR TO SITE BEGINNING TO OOZE, 3 CC AIR REPLACED TO STOP OOZING AT 1610. DEFLATION RESUMED AT APPROX 1800 & 2 CC AIR REMOVED W/ NO FURTHER OOZING NOTED FROM SITE, WILL CONTINUE DEFLATION TOLERATED. WILL CONTINUE TO MONITOR & REPORT OFF TO ONCOMING RN.
--- NOTE | 2022-12-03 22:41 | NUR ---
SUPPLIMENTAL RECORD DOCUMENTATION: PT IS VERY COMBATIVE. SHE REGULARLY STOPS HER BREATHING TX PRIOR TO COMPLETION AND STATED SHE "DOES NOT WANT IT". SHE IS RESISTANT TOWARDS BEING PUT ON THE BIPAP REGARDLESS OF STAFF EFFORTS TO EXPLAIN TO HER THAT SHE NEEDS THE BIPAP TO HELP HER CONDITION. WHILE ATTEMPTING TO GET AN ABG SHE REPEATEDLY, AND PURPOSEFULLY, MOVED OR FLEXED HER HANDS/WRIST TO INHIBIT MY ATTEMPT. I HAD TO CALL IN ANOTHER RT TO GET ABG. UPON ENTERING THE ROOM TO ADMINISTER TX, PT HAD A MALE VISITOR. WHILE I WAS SETTING UP THE TX, SHE STARTED TO COMPLAIN ABOUT HAVING TO DO THE TX. HER VISITOR ATTEMPTED TO ENCOURAGE HER, TO WHICH SHE ANGRILY RESPONDED "SHUT UP, JUST SHUT UP". THIS IS REFLECTIVE OF THE TONE SHE TAKES WITH THE RN'S AND RT'S.
[2022-12-04 06:18] LABS: BASOPHILS PERCENT AUTO 0 % (0-2); EOSINOPHILS PERCENT AUTO 0 % (0-6); Hematocrit 39.5 % (33.0-51.0); Hemoglobin 12.7 g/dL (11.5-16.0); IMMATURE GRAN ABSOLUTE AUTO 0.04 K/mm3 (0.00-0.10); IMMATURE GRAN PERCENT AUTO 1 % (0-1); LYMPHOCYTES ABSOLUTE AUTO 0.34 K/mm3 (0.84-5.20); LYMPHOCYTES PERCENT AUTO 5 % (21-46); MONOCYTES PERCENT AUTO 6 % (4-13); Mean Corpuscular HGB 35.2 pg (26.0-34.0); Mean Corpuscular HGB Conc 32.2 g/dL (31.5-36.5); Mean Corpuscular Volume 109 fL (80-100); Mean Platelet Volume 10.2 fL (9.1-12.4); NEUTROPHILS ABSOLUTE AUTO 5.57 K/mm3 (1.96-9.15); NEUTROPHILS PERCENT AUTO 88 % (41-73); Platelet Count 153 K/mm3 (150-400); RDW Coefficient Variation 15.1 % (11.7-14.2); RDW Standard Deviation 61.2 fL (35.1-46.3); Red Blood Cell Count 3.61 M/mm3 (3.80-5.20); White Blood Cell Count 6.35 K/mm3 (4.00-11.30)
[2022-12-04 06:30] LABS: Albumin, Blood 2.8 g/dL (3.4-5.0); Anion Gap 1 mmol/L (6-16); Blood Urea Nitrogen 21 mg/dL (8-24); Bun/Creatinine Ratio 49.1 (12.0-20.0); CO2, Blood 32 mmol/L (21-32); Calcium, Blood 9.1 mg/dL (8.5-10.1); Chloride, Blood 107 mmol/L (98-108); Creatinine, Blood 0.43 mg/dL (0.40-1.00); Glomerular Filtration Rate 111 (60-); Glucose, Blood 116 mg/dL (70-99); Phosphorus, Blood 2.5 mg/dL (2.5-4.9); Potassium, Blood 4.4 mmol/L (3.5-5.5); Sodium, Blood 140 mmol/L (136-145)
--- NOTE | 2022-12-04 07:12 | NUR ---
SHIFT SUMMARY OVERNIGHT, PATIENT ANXIOUS, RESISTANT TO BIPAP. WITH HELP OF PRECEDEX, PATIENT ABLE TO REST AND WORE BIPAP FOR ABOUT 4 HOURS TOTAL. ALTERNATES WITH NASAL CANNULA, BUT WITH ANY ACTIVITY (ESPECIALLY GETTING OUT OF BED TO COMMODE), PATIENT BECOMES VERY DYSPNIC AND IS UNABLE TO RECOVER SATS ON NC AND HAS TO RETURN TO BIPAP TO RECOVER. BP STABLE. SR, HR 70-80S. S/P CATH YESTERDAY; R RADIAL TR BAND OFF AND SITE WNL. URINE OUTPUT MARGINAL. NO BM OVERNIGHT. RESTING COMFORTABLY ON BIPAP AT THIS TIME. CALL LIGHT WITHIN REACH.
--- NOTE | 2022-12-04 08:20 | NUR ---
ASSUMED CARE / DR CEE: REPORT RECEIVED FROM CECILIO STAUFFER. ASSUMED CARE OF THIS PT AT APPROX 0700. ON ASSESSMENT, THE PT IS RESTING QUIETLY. SHE IS WEARING BIPAP & TOLERATING WELL WHILE RESTING. AWAKENS EASILY TO VERBAL STIMULUS & ORIENTED TO PERSON, PLACE, SITUATION & FOLLOWING DIRECTIONS. SHE BECOMES AGITATED & ANXIOUS EASILY, REPEATING "I JUST WANT TO GO HOME, PLEASE LET ME GO HOME" WHEN BECOMING DYSPNEIC. LS ARE TIGHT & WHEEZING T/O, PT INITIALLY ON BIPAP W/ SETTINGS: 16/8 & 30% FIO2, TRANSITIONED TO 7L NC & CONTINUES TO TOLERATE WELL W/ O2 SATS > 92% ON AVG. MONITOR SHOWS SR-ST W/ HR 80-100s, INCREASED W/ ANXIETY OR EXERTION. BP STABLE. PT HAS NO GI COMPLAINTS, TOLERATING PO INTAKE WELL. VOIDS URINE W/O DIFFICULTY, DIURESIS PER EMAR. SKIN CONDITION OVERALL FRAGILE, INTACT. PUNCTURE SITE TO RIGHT WRIST S/P ANGIOGRAM WNL; NO BLEEDING, BRUISING OR HEMATOMA FORMATION NOTED, DRESSING CDI. REDDENED BUT BLANCHABLE COCCYX/ BUTTOCKS, Q2H REPOSITIONING TO MAINTAIN SKIN INTEGRITY. PROVIDER AT BEDSIDE THIS AM TO EVAL PT. NO CHANGES AT THIS TIME, CONTINUE POC. WILL CONTINUE TO MONITOR & UPDATE NEEDED.
--- NOTE | 2022-12-04 10:26 | NUR ---
Spiritual Care Visit. Pt. is awake in bed and welcomes my visit. SO is present. Pt. is pleasant and displays evidence of being a compliant and grateful Pt. Listen with empathy and rapport is established. Consider matters of personal geraldo and belief. Prayed with Pt. Pt. verbalized gratitude for the spiritual care visit and welcomed this cover stitch machine operator to return.
--- NOTE | 2022-12-04 17:55 | NUR ---
Met with pt and s/o Jama. Pt states she has a lot of anxiety surrounding her air hunger, and that was the main focus of the conversation. Once she did understand more about hospice providing agressive symptom managment, in her case for air hunger, she was much more interested in having the discussion. At this time, pt is on board with d/c with hospice services. She indicates she would like to go home with [facility] hospice. Will talk with Constitutional Law Professor in the am. Choice letter filled out, marked in chart. In the meantime, pt did change code status to DNR once understanding this doesn't mean we wouldn't standby and watch if for instance she began choking on a foreign object. She then v/u and was happy to sign. She also chose "comfort care", but request this portion of the POLST go into effect when she leaves with hospice. She made it clear she does not wish to return to the hospital after leaving this time.
--- NOTE | 2022-12-04 18:02 | NUR ---
UPDATE / SHIFT SUMMARY: NO ACUTE CHANGES SINCE PRIOR UPDATES. PT REMAINS ORIENTED TO ALL, HAS BEEN COOPERATIVE MOST OF THE SHIFT. DID HAVE ONE INSTANCE OF INCREASED ANXIETY THIS SHIFT IN WHICH BIPAP WAS PLACED TO DECREASE WORK OF BREATHING & PRECEDEX WAS TITRATED UP TO 0.3 MCG/KG/HR. THE PT WAS ABLE TO TOLERATE THE BIPAP FOR APPROX 10 MINS & THEN REQUESTED THAT IT BE REMOVED. SHE WAS PLACED BACK ON 6L NC AT THAT TIME & HAS TOLERATED WELL. THIS RN HAS CONTACTED PALLIATIVE CARE RN, DAVINA Chiang, WITH CONCERNS THAT GOALS OF CARE SHOULD BE ADDRESSED FOR THIS PT. SHE CONTINUES TO STATE THAT SHE WISHES TO GO HOME & BE COMFORTABLE. PT's CODE STATUS HAS BEEN CHANGED & THE PLAN IS FOR HER TO NOW GO HOME ON HOSPICE - SEE PALLIATIVE CARE NOTE. LS REMAIN TIGHT & WHEEZING T/O, PT CURRENTLY ON 6L NC W/ O2 SATS > 92% ON AVG. DESATS TO 88% W/ INCREASED ANXIETY OR COUGHING EPISODES. MONITOR SHOWS SR-ST W/ HR 90-100s, BP STABLE. NO GI COMPLAINTS, TOLERATING PO INTAKE WELL. VOIDS URINE W/O DIFFICULTY USING BSC. SKIN OVERALL FRAGILE, Q2H REPOSITIONING TO MAINTAIN SKIN ITEGRITY. SHE HAS TOLERATED SITTING UP IN THE CHAIR AT VARIOUS TIMES THIS SHIFT FOR MEALS. WILL CONTINUE TO MONITOR & REPORT OFF TO ONCOMING RN.
--- NOTE | 2022-12-04 19:58 | NUR ---
ASSUMPTION TO CARE ASSUMED CARE OF PATIENT AROUND 1914. UPON PRESENTATION, PATIENT CALM AND COOPERATIVE. SIGNIFICANT OTHER MELISSA AT BEDSIDE. ASSISTED PATIENT TO BSC TO VOID, RESULTING IN HER BECOMING VERY DYSPNIC, IN TRIPOD POSITION, ANXIOUS. PATIENT DECLINES BIPAP TO RECOVER AT THIS TIME TIME AND REMAINS ON NC. LUNGS ARE DIM/TIGHT, INSPIRATORY WHEEZES. MONITOR SHOWING SR, HR 80S. BP STABLE. DNR BAND PLACED ON PATIENT TO REFLECT NEW CODE STATUS; PATIENT VERBALIZES UNDERSTANDING AND IS EAGER TO RETURN HOME.
[2022-12-05 03:29] LABS: BASOPHILS PERCENT AUTO 0 % (0-2); EOSINOPHILS PERCENT AUTO 0 % (0-6); Hematocrit 39.1 % (33.0-51.0); Hemoglobin 12.7 g/dL (11.5-16.0); IMMATURE GRAN ABSOLUTE AUTO 0.03 K/mm3 (0.00-0.10); IMMATURE GRAN PERCENT AUTO 0 % (0-1); LYMPHOCYTES ABSOLUTE AUTO 0.46 K/mm3 (0.84-5.20); LYMPHOCYTES PERCENT AUTO 6 % (21-46); MONOCYTES ABSOLUTE AUTO 0.92 K/mm3 (0.16-1.47); MONOCYTES PERCENT AUTO 13 % (4-13); Mean Corpuscular HGB 34.9 pg (26.0-34.0); Mean Corpuscular HGB Conc 32.5 g/dL (31.5-36.5); Mean Corpuscular Volume 107 fL (80-100); Mean Platelet Volume 10.2 fL (9.1-12.4); NEUTROPHILS ABSOLUTE AUTO 5.83 K/mm3 (1.96-9.15); NEUTROPHILS PERCENT AUTO 81 % (41-73); Platelet Count 163 K/mm3 (150-400); RDW Coefficient Variation 14.8 % (11.7-14.2); RDW Standard Deviation 58.1 fL (35.1-46.3); Red Blood Cell Count 3.64 M/mm3 (3.80-5.20); White Blood Cell Count 7.24 K/mm3 (4.00-11.30)
[2022-12-05 04:55] LABS: Bun/Creatinine Ratio 42.9 (12.0-20.0); Calcium, Blood 8.8 mg/dL (8.5-10.1); Creatinine, Blood 0.49 mg/dL (0.40-1.00); Potassium, Blood 3.9 mmol/L (3.5-5.5)
--- NOTE | 2022-12-05 06:49 | NUR ---
SHIFT SUMMARY OVERNIGHT, PATIENT REMAINED A/0X4. CONTINUES TO HAVE ANXIETY ASSOCIATED WITH DYSPNEA. ON LOW DOSE PRECEDEX GTT. SR ON MONITOR, HR 70-80S. SBP 110-130S. PT REMAINED OF 6L NC ALL NIGHT. THERE WERE A FEW INCIDENCES OVERNIGHT IN WHICH PATIENT COULD HAVE BENEFITED FROM BIPAP TO ASSIST IN RECOVERY/WOB, BUT PATIENT DECLINED. DYSPNIC WITH MINIMAL EXERTION. TOLERATING DIET. UP TO BEDSIDE COMMODE MULTIPLE TIMES; URINE OUTPUT ADEQUATE. PATIENT IS VERY EAGER TO GO HOME AND IS HOPEFUL THAT HOME HOSPICE WILL BE TO BE ARRANGED TODAY.
--- NOTE | 2022-12-05 07:51 | NUR ---
ASSUMED CARE OF PATIENT AT 0700, PT IS QUIETLY SLEEPING. SATS 100% AND VSS. CHART REVIEWED AND FULL ASSESSMENT WILL BE DOCUMENTED.
--- NOTE | 2022-12-05 11:42 | NUR ---
CARMENZA IS EXPRESSING HER FRUSTRATION. SHE IS COOPERATIVE WITH CARE BUT VOICING HER FRUSTRATION. SHE IS ASKING ABOUT "WHAT IS OK AT HOME?" "CAN I HAVE 1/2 A RYANNE'S HARD LEMONADE?" "CAN I SMOKE?" PT EDUCATION ABOUT HOSPICE AND THE CARE SHE RECEIVES ALONG WITH HOW HER ACTIONS WILL MIX OR NOT MIX WITH THESE THINGS. SIGNIFICANT OTHER IS SHOWING SIGNS OF HIS FRUSTRATION WELL. VERY DIFFERENT DYNAMIC THAN OVER THE WEEKEND.
--- NOTE | 2022-12-05 17:57 | NUR ---
CARMENZA OVERALL IS IMPROVED FROM THE WEEKEND. SHE CONTINUES ON 3L NC AND HER SATS HAVE MAINTAINED >90% T/O THE SHIFT. SHE HAS BEEN UP AND DOWN TO THE BSC AND BEEN ABLE TO TOLERATE THE MOVEMENT WITHOUT DESATURATION OR BREATHING DIF- FICULTY. SHE HAS BEEN VERBALLY AGGRESSIVE WITH MELISSA HER S/O. SHE SAYS SHE IS ALWAYS LIKE THAT. SHE ASKED FOR MEDICATION TO "CALM HER DOWN". ONE DOSE OF ATIVAN GIVEN JUST BEFORE DINNER. SHE DID EAT SOME TODAY. MELISSA HAS BEEN IN AND OUT T/O THE DAY. PLAN TO GO HOME TOMORROW.
--- NOTE | 2022-12-05 22:22 | NUR ---
ASSUMED CARE ASSUMED CARE AT 1900. PT A/O X 4. ANXIOUS BUT COOPERATIVE WITH CARE. SOB W/ EXERTION, SPO2 87-90% WHEN GETTING UP TO BSC W/ ONE ASSIST. RECOVERS AFTER APPROX 5 MINS. SR RATE 70-80'S. SBP 140'S. ON 3L NC. VSS. PT DENIES CHEST PAIN. PT REQUESTED ATIVAN AND STATES SHE IS VERY ANXIOUS. MEDICATED PER EMAR. PT REFUSING TO WEAR BIPAP. PT STATES "I CAN'T BREATHE WITH IT ON". SEE SHIFT ASSESSMENT FOR FULL ASSESSMENT. CALL LIGHT IN REACH. THREE SIDE RAILS UP.
--- NOTE | 2022-12-06 04:45 | NUR ---
TRANSFER TO 340 PT TRANSFERRED VIA BED TO 340 W/ PCT. VSS. PT CALM, W/ NO S/S OF DISTRESS. BELONGINGS AND CHART SENT WITH PT. REPORT GIVEN TO MED NURSE.
--- NOTE | 2022-12-06 05:27 | NUR ---
SHIFT SUMMARY/TRANSFER NOTE HANDOFF RECEIVED FROM [facility]PRAISER ANNETTE. PT ARRIVED TO FLOOR VIA GURNEY. PT ORIENTED TO UNIT. CALL BUTTON WITHIN REACH. PERSONAL POSSESSIONS WITH PT. BED ALARM IS ACTIVE. TRANSFER SKIN ASSESSMENT COMPLETED - 2 MANAGER LINE
--- NOTE | 2022-12-06 10:36 | NUR ---
PT DISCHARGED HOME WITH HOSPICE AT 1035 WITH FAMILY TO TRANSPORT. O2 TANK WAS DROPPED OF PRIOR TO DISCHARGE . PT HAS BEEN RESTING COMFORTABLY ALL MORNING NO DISTRESS NOTED. PT ABLE TO BE A 1 PERSON ASSIST TO WHEELCHAIR. PT ESCORTED OUT BY AID. ALL PAPERWORK REVIEWED AND HOSPICE NURSE TO MEET PT AT HOME FOR EVALUATION. ALL PERSONAL BELONGINGS WITH PT.
== END 2022-12-06 10:34 | disposition hospice, home (50) | DRG 189 ==
LOC: ER 19:08 → ICUE 23:05 → ICUW 23:05 → MEDS 23:05 → ICUW 23:14 → ICUE 12-01 12:24 → MEDS 12-06 04:40
PROVIDERS: Emergency Medicine; Internal Medicine; Student in an Organized Health Care Education/Training Program; ADMIT Student in an Organized Health Care Education/Training Program
PROC: 3E02340 Introduction of Influenza Vaccine into Muscle, Percutaneous Approach (ICD-10-PCS; 2022-11-30)
PROC: 5A09357 Assistance with Respiratory Ventilation, Less than 24 Consecutive Hours, Continuous Positive Airway Pressure (ICD-10-PCS; 2022-11-30)
PROC: 4A133R1 Monitoring of Arterial Saturation, Peripheral, Percutaneous Approach (ICD-10-PCS; 2022-12-02)
PROC: 4A023N7 Measurement of Cardiac Sampling and Pressure, Left Heart, Percutaneous Approach (ICD-10-PCS; principal; 2022-12-03)
PROC: B24BZZ3 Ultrasonography of Heart with Aorta, Intravascular (ICD-10-PCS; 2022-12-03)
PROC: B211YZZ Fluoroscopy of Multiple Coronary Arteries using Other Contrast (ICD-10-PCS; 2022-12-03)
DX: J96.01 Acute respiratory failure with hypoxia (principal); I21.A1 Myocardial infarction type 2; E46 Unspecified protein-calorie malnutrition; I51.81 Takotsubo syndrome; I50.22 Chronic systolic (congestive) heart failure; J96.02 Acute respiratory failure with hypercapnia; Z66 Do not resuscitate; Z20.822 Contact with and (suspected) exposure to COVID-19; Z51.5 Encounter for palliative care; J43.9 Emphysema, unspecified; F17.210 Nicotine dependence, cigarettes, uncomplicated; I11.0 Hypertensive heart disease with heart failure; R73.9 Hyperglycemia, unspecified; Z23 Encounter for immunization; I25.10 Atherosclerotic heart disease of native coronary artery without angina pectoris; T38.0X5A Adverse effect of glucocorticoids and synthetic analogues, initial encounter; M06.9 Rheumatoid arthritis, unspecified; Z96.641 Presence of right artificial hip joint; Z85.828 Personal history of other malignant neoplasm of skin; Z98.51 Tubal ligation status; Z87.440 Personal history of urinary (tract) infections; Z98.890 Other specified postprocedural states; Z88.1 Allergy status to other antibiotic agents; Z88.8 Allergy status to other drugs, medicaments and biological substances; Z79.52 Long term (current) use of systemic steroids
CPT/HCPCS: 0241U; 36415; 36600; 71045; 71275; 76937; 80048; 80053; 80069; 82803; 83880; 84484; 85025; 85520; 85610; 85730; 90686; 93005; 93010; 93454; 94640; 94660; 94664; 94762; 96365; 96367; 96375; 96376; 97110; 97162; 99152; 99291-25; A9270; C1769; C1887; C1894; C8929; G0008; J0456; J0696; J1644; J1650; J1940; J2060; J2250; J2405; J2920; J2930; J3010; J3475; J7030; J7050; Q9957; Q9967

== ENCOUNTER → 2023-02-20 | Outpatient (CLI) | payer OTHER ==
[2023-02-20 12:42] LABS: BASOPHILS ABSOLUTE AUTO 0.04 K/mm3 (0.00-0.23); BASOPHILS PERCENT AUTO 1 % (0-2); EOSINOPHILS PERCENT AUTO 2 % (0-6); Hematocrit 33.2 % (33.0-51.0); Hemoglobin 10.4 g/dL (11.5-16.0); IMMATURE GRAN ABSOLUTE AUTO 0.02 K/mm3 (0.00-0.10); IMMATURE GRAN PERCENT AUTO 0 % (0-1); LYMPHOCYTES ABSOLUTE AUTO 1.22 K/mm3 (0.84-5.20); LYMPHOCYTES PERCENT AUTO 25 % (21-46); MONOCYTES ABSOLUTE AUTO 0.34 K/mm3 (0.16-1.47); MONOCYTES PERCENT AUTO 7 % (4-13); Mean Corpuscular HGB 34.6 pg (26.0-34.0); Mean Corpuscular HGB Conc 31.3 g/dL (31.5-36.5); Mean Corpuscular Volume 110 fL (80-100); Mean Platelet Volume 9.4 fL (9.1-12.4); NEUTROPHILS PERCENT AUTO 64 % (41-73); Platelet Count 265 K/mm3 (150-400); RDW Coefficient Variation 15.4 % (11.7-14.2); Red Blood Cell Count 3.01 M/mm3 (3.80-5.20); White Blood Cell Count 4.82 K/mm3 (4.00-11.30)
[2023-02-20 12:59] LABS: Albumin, Blood 3.1 g/dL (3.4-5.0); Albumin/Globulin Ratio 0.9 (0.8-1.8); Bilirubin, Total 0.3 mg/dL (0.1-1.0); Bun/Creatinine Ratio 17.7 (12.0-20.0); Calcium, Blood 9.1 mg/dL (8.5-10.1); Creatinine, Blood 0.57 mg/dL (0.40-1.00); Globulin, Blood 3.3 g/dL (2.2-4.0); Potassium, Blood 3.6 mmol/L (3.5-5.5); Total Protein, Blood 6.4 g/dL (6.4-8.2)
== END | disposition home or self-care (01) ==
LOC: LAB 12:17 → LAB SHORT 12:17
PROVIDERS: Internal Medicine Rheumatology
DX: M05.9 Rheumatoid arthritis with rheumatoid factor, unspecified (principal)
CPT/HCPCS: 80053; 85025; 85651

== ENCOUNTER 2023-05-02 22:37 | Inpatient (IN) | payer OTHER ==
[~2023-05-02] VITALS: Ht 160 cm; Wt 46.7 kg
[2023-05-02 22:51] LABS: Base Excess Venous 13.3 mmol/L; Bicarbonate Venous 34.6 mmol/L (24.0-30.0); PCO2 Venous 62.8 mmHg (38-42); pH Blood Venous 7.39 (7.34-7.37)
[2023-05-02] MEDS ORDERED: BREZTRI AEROS10.7 GM INH (22:57)
[2023-05-02] MEDS ORDERED: LOSARTAN POTASS25 M2 PO (22:57)
[2023-05-02] MEDS ORDERED: METHOTREXATE2.510 PO (22:57)
[2023-05-02] MEDS ORDERED: METOPROLOL SUCC25 MG PO (22:57)
[2023-05-02] MEDS ORDERED: FUROSEMIDE20 MG PO (22:57)
[2023-05-02] MEDS ORDERED: LEFLUNOMIDE10 M2 PO (22:57)
[2023-05-02] MEDS ORDERED: Ventolin/Prove6.7 GM INH (22:57)
[2023-05-02] MEDS ORDERED: REMERON1510 PO (22:57)
[2023-05-02 22:58] LABS: BASOPHILS ABSOLUTE AUTO 0.05 K/mm3 (0.00-0.23); BASOPHILS PERCENT AUTO 1 % (0-2); EOSINOPHILS ABSOLUTE AUTO 0.22 K/mm3 (0.00-0.68); EOSINOPHILS PERCENT AUTO 3 % (0-6); Hematocrit 33.8 % (33.0-51.0); Hemoglobin 11.2 g/dL (11.5-16.0); IMMATURE GRAN ABSOLUTE AUTO 0.02 K/mm3 (0.00-0.10); IMMATURE GRAN PERCENT AUTO 0 % (0-1); LYMPHOCYTES ABSOLUTE AUTO 1.29 K/mm3 (0.84-5.20); LYMPHOCYTES PERCENT AUTO 20 % (21-46); MONOCYTES ABSOLUTE AUTO 0.73 K/mm3 (0.16-1.47); MONOCYTES PERCENT AUTO 11 % (4-13); Mean Corpuscular HGB 38.6 pg (26.0-34.0); Mean Corpuscular HGB Conc 33.1 g/dL (31.5-36.5); Mean Corpuscular Volume 117 fL (80-100); Mean Platelet Volume 9.6 fL (9.1-12.4); NEUTROPHILS ABSOLUTE AUTO 4.19 K/mm3 (1.96-9.15); NEUTROPHILS PERCENT AUTO 65 % (41-73); Platelet Count 212 K/mm3 (150-400); RDW Coefficient Variation 14.5 % (11.7-14.2); RDW Standard Deviation 61.8 fL (35.1-46.3)
[2023-05-02] MEDS ORDERED: Ventolin5 MG/1 ML INH (22:58)
[2023-05-02] MEDS ORDERED: ONDA4SO (22:58)
[2023-05-02 23:22] LABS: Albumin, Blood 3.5 g/dL (3.4-5.0); Bilirubin, Total 0.3 mg/dL (0.1-1.0); Bun/Creatinine Ratio 16.5 (12.0-20.0); Calcium, Blood 10.5 mg/dL (8.5-10.1); Creatinine, Blood 0.67 mg/dL (0.40-1.00); Globulin, Blood 3.4 g/dL (2.2-4.0); Potassium, Blood 3.3 mmol/L (3.5-5.5); Total Protein, Blood 6.9 g/dL (6.4-8.2)
[2023-05-03 01:30] LABS: Influenza A, PCR NEGATIVE (NEGATIVE); Influenza B, PCR NEGATIVE (NEGATIVE); Resp Syncytial Virus, PCR NEGATIVE (NEGATIVE); SARS-Cov-2 (COVID-19) PCR, MMC NEGATIVE (NEGATIVE)
[2023-05-03] MEDS ORDERED: ONDA4 PO (02:50)
[2023-05-03 03:04] VITALS: BP 102/61
[2023-05-03] MEDS ORDERED: VARENICLINE TART1 M2 PO (03:25)
[2023-05-03] MEDS ORDERED: FOLI1 PO (03:27)
[2023-05-03 05:48] LABS: Hematocrit 30.7 % (33.0-51.0); Hemoglobin 10.1 g/dL (11.5-16.0); Mean Corpuscular HGB 37.8 pg (26.0-34.0); Mean Corpuscular HGB Conc 32.9 g/dL (31.5-36.5); Mean Corpuscular Volume 115 fL (80-100); Mean Platelet Volume 10.1 fL (9.1-12.4); Platelet Count 188 K/mm3 (150-400); RDW Coefficient Variation 14.3 % (11.7-14.2); RDW Standard Deviation 60.7 fL (35.1-46.3); Red Blood Cell Count 2.67 M/mm3 (3.80-5.20); White Blood Cell Count 4.69 K/mm3 (4.00-11.30)
[2023-05-03 05:52] LABS: Base Excess Venous 8.5 mmol/L; PCO2 Venous 55.5 mmHg (38-42); pH Blood Venous 7.39 (7.34-7.37)
--- NOTE | 2023-05-03 06:21 | NUR ---
ADMIT SUMMARY CALLED ED FOR REPORT AT 0227. REPORT GIVEN TO THIS RN BY NORMAN BREWER AT 0235. PT TO RM 361 AT 0252. PT ON 3L O2. BIPAP IS SET UP IN THE ROOM BY RT FOR USE IF NEEDED. PT HAS PUREWICK IN PLACE. PT CURRENTLY 96% O2 ON 3L NC.
[2023-05-03 06:33] LABS: Albumin, Blood 3.1 g/dL (3.4-5.0); Albumin/Globulin Ratio 1.1 (0.8-1.8); Bilirubin, Total 0.2 mg/dL (0.1-1.0); Bun/Creatinine Ratio 20.4 (12.0-20.0); Calcium, Blood 9.8 mg/dL (8.5-10.1); Creatinine, Blood 0.59 mg/dL (0.40-1.00); Globulin, Blood 2.9 g/dL (2.2-4.0); Magnesium, Blood 2.1 mg/dL (1.6-2.4); Potassium, Blood 3.5 mmol/L (3.5-5.5)
[2023-05-03 07:29] VITALS: BP 122/57
[2023-05-03 08:04] LABS: BAND PERCENT MAN 6 % (0-8); BASOPHILS ABSOLUTE MAN 0.04 K/mm3 (0.00-0.23); BASOPHILS PERCENT MAN 1 % (0-2); EOSINOPHILS PERCENT MAN 0 % (0-6); LYMPHOCYTES ABSOLUTE MAN 0.09 K/mm3 (0.84-5.20); LYMPHOCYTES PERCENT MAN 2 % (21-46); MONOCYTES ABSOLUTE MAN 0.04 K/mm3 (0.16-1.47); MONOCYTES PERCENT MAN 1 % (4-13); SEG NEUTROPHILS PERCENT MAN 90 % (41-73); TOTAL CELLS COUNTED 100
[2023-05-03] MEDS ORDERED: GUAI600T33 PO (12:31)
[2023-05-03] MEDS ORDERED: Nicoderm Cq1 EACH TOP (12:31)
[2023-05-03] MEDS ORDERED: SPIRIVA RESPIMAT4 G3 INH (12:33)
[2023-05-03] MEDS ORDERED: AZIT250 PO (12:33)
[2023-05-03] MEDS ORDERED: PRED20 PO (12:35)
--- NOTE | 2023-05-03 13:44 | NUR ---
PT DISCHARGED THE PT VERBALIZED UNDERSTANDING OF THE DC INSTRUCTIONS. THE PT WAS RECCOMENDED TO FOLLOW UP WITH HER PCP SOON POSSIBLE. THEPTS PRESCRIPTIONS WERE FAXED TO [facility] SHE RQUESTED. PT WAS TRANSFERED VIA WHEELCHAIR O2 APPLIED ACCOMPANIED BY HER SO AND THE TRAVELING ACCOUNTANT
== END 2023-05-03 13:42 | disposition home or self-care (01) | DRG 189 ==
LOC: ER 22:37 → MEDS 05-03 01:36 → ENPENDDIS 05-03 12:17 → MEDS 05-03 13:42
PROVIDERS: Emergency Medicine; Student in an Organized Health Care Education/Training Program; ADMIT Student in an Organized Health Care Education/Training Program
PROC: 5A09357 Assistance with Respiratory Ventilation, Less than 24 Consecutive Hours, Continuous Positive Airway Pressure (ICD-10-PCS; principal; 2023-05-03)
DX: J96.21 Acute and chronic respiratory failure with hypoxia (principal); J44.1 Chronic obstructive pulmonary disease with (acute) exacerbation; J96.22 Acute and chronic respiratory failure with hypercapnia; Z66 Do not resuscitate; Z51.5 Encounter for palliative care; Z20.822 Contact with and (suspected) exposure to COVID-19; I10 Essential (primary) hypertension; M06.9 Rheumatoid arthritis, unspecified; R77.8 Other specified abnormalities of plasma proteins; F17.210 Nicotine dependence, cigarettes, uncomplicated; Z96.641 Presence of right artificial hip joint; Z98.51 Tubal ligation status; Z88.1 Allergy status to other antibiotic agents; Z88.8 Allergy status to other drugs, medicaments and biological substances; Z79.899 Other long term (current) drug therapy
CPT/HCPCS: 0241U; 36415; 71045; 80053; 82803; 82947; 83735; 84484; 85025; 93005; 93010; 94640; 94644; 94660; 94664; 94762; 96374; 96375; 99285-25; A9270; J0456; J1650; J2930; J7050

== ENCOUNTER 2023-05-07 09:02 | Observation (INO) | payer OTHER ==
[~2023-05-07] VITALS: Ht 157.5 cm; Wt 47.8 kg
[~2023-05-07 09:02] MED LIST changes: +AZIT250 PO; +BREZTRI AEROS10.7 GM INH; +FUROSEMIDE20 MG PO; +GUAI600T33 PO; +LEFLUNOMIDE10 M2 PO; +LOSARTAN POTASS25 M2 PO; +METHOTREXATE2.510 PO; +METOPROLOL SUCC25 MG PO; +Nicoderm Cq1 EACH TOP; +ONDA4 PO; +ONDA4SO; +REMERON1510 PO; +SPIRIVA RESPIMAT4 G3 INH; +VARENICLINE TART1 M2 PO; +Ventolin/Prove6.7 GM INH; +Ventolin5 MG/1 ML INH
[2023-05-07 09:31] LABS: BASOPHILS ABSOLUTE AUTO 0.04 K/mm3 (0.00-0.23); BASOPHILS PERCENT AUTO 1 % (0-2); EOSINOPHILS ABSOLUTE AUTO 0.06 K/mm3 (0.00-0.68); EOSINOPHILS PERCENT AUTO 1 % (0-6); Hematocrit 38.6 % (33.0-51.0); Hemoglobin 12.5 g/dL (11.5-16.0); IMMATURE GRAN ABSOLUTE AUTO 0.03 K/mm3 (0.00-0.10); IMMATURE GRAN PERCENT AUTO 0 % (0-1); LYMPHOCYTES ABSOLUTE AUTO 1.62 K/mm3 (0.84-5.20); LYMPHOCYTES PERCENT AUTO 23 % (21-46); MONOCYTES ABSOLUTE AUTO 0.64 K/mm3 (0.16-1.47); MONOCYTES PERCENT AUTO 9 % (4-13); Mean Corpuscular HGB 38.5 pg (26.0-34.0); Mean Corpuscular HGB Conc 32.4 g/dL (31.5-36.5); Mean Corpuscular Volume 119 fL (80-100); Mean Platelet Volume 9.2 fL (9.1-12.4); NEUTROPHILS ABSOLUTE AUTO 4.66 K/mm3 (1.96-9.15); NEUTROPHILS PERCENT AUTO 66 % (41-73); Platelet Count 229 K/mm3 (150-400); RDW Coefficient Variation 14.9 % (11.7-14.2); RDW Standard Deviation 65.7 fL (35.1-46.3); Red Blood Cell Count 3.25 M/mm3 (3.80-5.20); White Blood Cell Count 7.05 K/mm3 (4.00-11.30)
[2023-05-07 09:46] LABS: Albumin, Blood 3.7 g/dL (3.4-5.0); Albumin/Globulin Ratio 1.1 (0.8-1.8); Bilirubin, Total 0.3 mg/dL (0.1-1.0); Bun/Creatinine Ratio 22.3 (12.0-20.0); Creatinine, Blood 0.63 mg/dL (0.40-1.00); Globulin, Blood 3.4 g/dL (2.2-4.0); Magnesium, Blood 2.6 mg/dL (1.6-2.4); Total Protein, Blood 7.1 g/dL (6.4-8.2)
[2023-05-07 09:57] LABS: Base Excess Venous 9.5 mmol/L; Bicarbonate Venous 31.5 mmol/L (24.0-30.0); PCO2 Venous 56.3 mmHg (38-42); pH Blood Venous 7.39 (7.34-7.37)
[2023-05-07 14:15] VITALS: BP 124/55
[2023-05-07 16:01] VITALS: BP 126/67
[2023-05-07 16:06] LABS: pH Blood Venous 7.41 (7.34-7.37)
[2023-05-07 16:07] LABS: Bicarbonate Venous 26.6 mmol/L (24.0-30.0)
--- NOTE | 2023-05-07 18:18 | NUR ---
SHIFT SUMMARY; ASSUMED CARE FROM ED FOR ADMIT. A/A/OX4, NC ON ARRIVAL AT 5L. SLID TO BED FROM [place] BY STAFF MEMBERS. APPEARS SOB WITH ACCESSORY MUSCLE USE. DIM L/S T/O. RT TO ROOM, PREVIOUSLY ON BIPAP IN ED. PT STATES CANNOT WEAR IT IS TO CLAUSTERPHOBIC. DR. CHRISTINE TO ROOM TO ASSESS. PLACED ON HIGH FLOW BY RT AT 25% 45L, TOLERATING WELL. WORK OF BREATHING SLOWED, 1 HOUR LATER PT REPORTS FEELING MUCH BETTER. PRIOR TO DINNER, FAMILY IN HALLWAY STATING PT DOES NOT WANT OXYGEN "UP SO HIGH". IN ROOM TO ASSESS, APPEARS ADJITATED AND UNABLE TO HOLD STILL. CANNULA OFF AND STATES CANNOT WEAR WHILE EATING DINNER. NOTIFIED RT, PHONE CALL TO DR. CHRISTINE TO DISCUSS ANXIETY. VERBAL ORDER GIVEN FOR 0.5MG-1MG PO ATIVAN Q4 PRN, ORDER PLACED. MOVES SELF ON GURNEY NEEDED, UP TO BEDSIDE COMMODE DURING SHIFT WITH SBA, TOLERATED WELL. WILL CONTINUE TO MONITOR AND TREAT UNTIL CHANGE OF SHIFT.
--- NOTE | 2023-05-07 18:34 | NUR ---
Pt very anxious states she is much better on airvo. We discussed he symptoms and frailty. She is having more air hunger and anexiety is worse. Reviw with her family she is still eating but less and less. She is anxious about getting a new doctor and want to see her pulmonolgist more. She wants treatment and she fears dying of air hunger. We spoke about prognosis. Last admit she was sent home on hospice and they coame out for intake and told her she was not sick enough for hospice so now she is angry. Discused code status with son and boyfriend and how she is wavering. Tried to speak with pt and she did not want to discuss anything further. We got her up to commode and was to short of breath. Suggest she be intubation only. She had had anaphlaxis reactions to medications and is very fearfull. Will review with staff.
--- NOTE | 2023-05-07 18:56 | NUR ---
DISCUSSED RISKS OF SMOKING WITH OXYGEN, UNDERSTANDS RISK, DENIES HAVING CIGARETTES OR LIGHTERS WITH HER.
[2023-05-07 19:58] VITALS: BP 137/76
[2023-05-07 23:47] VITALS: BP 138/58
[2023-05-08 03:45] VITALS: BP 145/71
[2023-05-08 04:26] LABS: BASOPHILS ABSOLUTE AUTO 0.01 K/mm3 (0.00-0.23); BASOPHILS PERCENT AUTO 0 % (0-2); EOSINOPHILS PERCENT AUTO 0 % (0-6); Hematocrit 30.8 % (33.0-51.0); IMMATURE GRAN ABSOLUTE AUTO 0.05 K/mm3 (0.00-0.10); IMMATURE GRAN PERCENT AUTO 1 % (0-1); LYMPHOCYTES ABSOLUTE AUTO 0.17 K/mm3 (0.84-5.20); LYMPHOCYTES PERCENT AUTO 3 % (21-46); MONOCYTES ABSOLUTE AUTO 0.11 K/mm3 (0.16-1.47); MONOCYTES PERCENT AUTO 2 % (4-13); Mean Corpuscular HGB 38.2 pg (26.0-34.0); Mean Corpuscular HGB Conc 32.5 g/dL (31.5-36.5); Mean Corpuscular Volume 118 fL (80-100); Mean Platelet Volume 9.6 fL (9.1-12.4); NEUTROPHILS PERCENT AUTO 95 % (41-73); Platelet Count 203 K/mm3 (150-400); RDW Coefficient Variation 14.6 % (11.7-14.2); RDW Standard Deviation 63.4 fL (35.1-46.3); Red Blood Cell Count 2.62 M/mm3 (3.80-5.20); White Blood Cell Count 6.44 K/mm3 (4.00-11.30)
[2023-05-08 04:58] LABS: Bun/Creatinine Ratio 25.7 (12.0-20.0); Calcium, Blood 8.3 mg/dL (8.5-10.1); Creatinine, Blood 0.55 mg/dL (0.40-1.00); Potassium, Blood 5.1 mmol/L (3.5-5.5)
[2023-05-08 05:32] LABS: PCO2 Arterial 49.2 mmHg (35-45); PO2 Arterial 71.4 mmHg (80-100); pH Blood Arterial 7.36 (7.35-7.45)
--- NOTE | 2023-05-08 06:27 | NUR ---
SHIFT SUMMARY PT IS A/Ox3-4 AND COOPERATIVE WITH CARE. PT CAN BE VERY ANXIOUS AT TIMES, BUT RESPONDS WELL TO PRN ATIVAN. ABLE TO MAKE HER NEEDS KNOWN AND ANSWER QUESTIONS APPROPRIATELY. RESPIRATORY, MAINTAINS SPO2 >90% ON AIRVO 35L W/25% FiO2. LS VERY DIMINISHED/TIGHT T/O. PT DESATS VERY QUICKLY WITH ABULATION AND OFTEN TAKES SOME TIME TO RECOVER, ESPECIALLY WITH INTERMITTENT EPISODES OF ANXIETY. CARDIAC, REMAINS IN SR-ST WITH NO C/O CP OR PRESSURE T/O THE NIGHT. SBP HAS BEEN STABLE IN THE 110-130'S. GI/, ATTEMPTED TO STAND PIVOT TO BSC, BUT AGAIN PT DESATED VERY QUICKLY WEKK BECAME VERY TACYPNEIC. PT WOULD TOLERATE BEDPAN OF NOW. NS W/KCL CONTINUES TO INFUSE ORDERED VIA EMAR. PAIN AND INCREASED COUGH MANAGED PER EMAR. ASSESSED PT FOR RISKS OF ANY IGNITION SOURCES WELL BEHAVIORS FOR INCREASED RISKS OF FIRE DANGER. PT EDUCATED ON COMMON SOURCES OF IGNITION WELL NEED TO KEEP A SAFE ENVIRONMENT. NO NEW ORDERS AT THIS TIME, WILL REPORT TO ONCOMING RN. CYNDEE FRANCE OF THIS NOTE
[2023-05-08 07:53] VITALS: BP 145/108
[2023-05-08 11:26] VITALS: BP 172/85
[2023-05-08 15:53] VITALS: BP 154/99
--- NOTE | 2023-05-08 18:09 | NUR ---
SHIFT SUMMARY; ASSUMED CARE AT 0700. A/A/OX4, REPOSITIONS SELF ON BED NEEDED, UP TO BEDSIDE COMMODE WITH SBA. AIR VO AT START OF SHIFT 35L 25%, TITRATED DOWN TO NC 3L. SATS 93%. L/S DIM T/O. ANXIOUS AT TIMES AND DIFFICULT TO CALM, MEDICATED PER ORDERS FOR ANXIETY. NO ACUTE CHANGES, WILL CONTINUE TO MONITOR AND TREAT UNTIL CHANGE OF SHIFT.
[2023-05-08 19:50] VITALS: BP 158/79
[2023-05-08 23:45] VITALS: BP 119/69
--- NOTE | 2023-05-09 02:31 | NUR ---
CPAP PT IS RESTING QUIETLY WITH HER CPAP MASK ON, SHE HAS BEEN ABLE TO TOLERATE THE MASK CONSISTANTLY FOR APPROX 2.5 HOURS NOW, SPO2 >95%, RESP UNLABORED, CALL LIGHT IN REACH, BED IN LOW POSITION, WCTM
[2023-05-09 03:42] VITALS: BP 149/99
--- NOTE | 2023-05-09 06:11 | NUR ---
SHIFT SUMMARY NO ACUTE CHANGES NOTED THROUGH THE NIGHT, PT IS A&OX4, SBA TO BSC, VSS, SPO2 >95% ON 3L O2 VIA NC, PT DENIES PAIN, PRN ANXIETY MED GIVEN X1, PT WAS ABLE TO SLEEP THROUGH MAJORITY OF THE NIGHT WEARING HER CPAP, NS W/KCL INFUSING PER EMAR, PT IS AWAKE WATCHING TV THIS, SNACK PROVIDED, IGNITION & FIRE SAFETY EDUCATION PROVIDED, PT DENIES HAVING ANY TYPE OF IGNITION SOURCE, WCTM & REPORT TO DAY RN, CALL LIGHT IN REACH
[2023-05-09 07:53] VITALS: BP 197/57
--- NOTE | 2023-05-09 11:15 | NUR ---
Spiritual cre visit conducted. Patient is sitting up in bed and alert. Patient immediately shares about her struggles with and her desire to folow the Holiness geraldo. She talks about her challenges with quitting smoking and then we explore the different resources at her disposal. We discuss the spiritual aspects of addiction and look at it detached from her Holiness roots. We talk about the positives that can be found and the strength that the patient believes she can gain from geraldo in a higher power. We they look at a spiritual d/c plan and what steps she would feel comfortable taking and people that she would pursue who are solid in their geraldo. We talk about the well meaning but perhaps misguided attempts from family members to help her and how even those resources can still be positive. I provide therapeutic listening, gentle international student counselor and prayer. Patient responded well and showed signs of greater resolve and a deeper peace about her own spirituality.
[2023-05-09] MEDS ORDERED: BUDESONIDE0.5 MG/2 M INH (12:19)
[2023-05-09] MEDS ORDERED: LORA.5 PO (12:20)
[2023-05-09] MEDS ORDERED: IPRAT-ALBUT 0.5-3 ML INH (12:20)
== END 2023-05-09 13:30 | disposition home or self-care (01) ==
LOC: ER 09:02 → PCU 09:03
PROVIDERS: Student in an Organized Health Care Education/Training Program; ADMIT Internal Medicine
DX: J96.22 Acute and chronic respiratory failure with hypercapnia (principal); J96.21 Acute and chronic respiratory failure with hypoxia; J43.9 Emphysema, unspecified; F17.210 Nicotine dependence, cigarettes, uncomplicated; M06.9 Rheumatoid arthritis, unspecified; E43 Unspecified severe protein-calorie malnutrition; I10 Essential (primary) hypertension; Z20.822 Contact with and (suspected) exposure to COVID-19; Z68.21 Body mass index [BMI] 21.0-21.9, adult; Z88.8 Allergy status to other drugs, medicaments and biological substances; Z88.5 Allergy status to narcotic agent; Z88.1 Allergy status to other antibiotic agents; Z79.899 Other long term (current) drug therapy
CPT/HCPCS: 36415; 36600; 71045; 80048; 80053; 82803; 83735; 83880; 84145; 85025; 93005; 93010; 94640; 94644; 94660; 94664; 94762; 96361; 96365; 96372; 96375; 96376; 99285-25; A9270; G0378; J1650; J2060; J2930; J3480; J7030

== ENCOUNTER → 2023-05-22 | Outpatient (CLI) | payer OTHER ==
[~2023-05-22] MED LIST changes: +BUDESONIDE0.5 MG/2 M INH; +IPRAT-ALBUT 0.5-3 ML INH; +LORA.5 PO
[2023-05-22 19:29] LABS: BASOPHILS ABSOLUTE AUTO 0.03 K/mm3 (0.00-0.23); BASOPHILS PERCENT AUTO 1 % (0-2); EOSINOPHILS ABSOLUTE AUTO 0.08 K/mm3 (0.00-0.68); EOSINOPHILS PERCENT AUTO 1 % (0-6); Hematocrit 34.2 % (33.0-51.0); Hemoglobin 10.8 g/dL (11.5-16.0); IMMATURE GRAN ABSOLUTE AUTO 0.02 K/mm3 (0.00-0.10); IMMATURE GRAN PERCENT AUTO 0 % (0-1); LYMPHOCYTES ABSOLUTE AUTO 1.16 K/mm3 (0.84-5.20); LYMPHOCYTES PERCENT AUTO 18 % (21-46); MONOCYTES ABSOLUTE AUTO 0.37 K/mm3 (0.16-1.47); MONOCYTES PERCENT AUTO 6 % (4-13); Mean Corpuscular HGB 37.9 pg (26.0-34.0); Mean Corpuscular HGB Conc 31.6 g/dL (31.5-36.5); Mean Corpuscular Volume 120 fL (80-100); Mean Platelet Volume 9.8 fL (9.1-12.4); NEUTROPHILS ABSOLUTE AUTO 4.89 K/mm3 (1.96-9.15); NEUTROPHILS PERCENT AUTO 75 % (41-73); Platelet Count 212 K/mm3 (150-400); RDW Coefficient Variation 13.8 % (11.7-14.2); RDW Standard Deviation 61.8 fL (35.1-46.3); Red Blood Cell Count 2.85 M/mm3 (3.80-5.20); White Blood Cell Count 6.55 K/mm3 (4.00-11.30)
[2023-05-22 20:04] LABS: Albumin, Blood 3.3 g/dL (3.4-5.0); Albumin/Globulin Ratio 1.1 (0.8-1.8); Bilirubin, Total 0.3 mg/dL (0.1-1.0); Calcium, Blood 8.7 mg/dL (8.5-10.1); Creatinine, Blood 0.58 mg/dL (0.40-1.00); Globulin, Blood 2.9 g/dL (2.2-4.0); Potassium, Blood 3.7 mmol/L (3.5-5.5); Total Protein, Blood 6.2 g/dL (6.4-8.2)
== END ==
LOC: LAB 15:40 → LAB SHORT 15:40
PROVIDERS: Internal Medicine Rheumatology
DX: M05.9 Rheumatoid arthritis with rheumatoid factor, unspecified (principal)
CPT/HCPCS: 80053; 85025; 85651

== ENCOUNTER 2024-10-03 12:14 | Emergency (ER) | payer OTHER ==
[~2024-10-03] VITALS: Ht 160 cm; Wt 60.3 kg
[2024-10-03 13:08] LABS: BASOPHILS ABSOLUTE AUTO 0.07 K/mm3 (0.00-0.23); BASOPHILS PERCENT AUTO 1 % (0-2); EOSINOPHILS ABSOLUTE AUTO 0.17 K/mm3 (0.00-0.68); EOSINOPHILS PERCENT AUTO 2 % (0-6); Hematocrit 33.6 % (33.0-51.0); Hemoglobin 10.6 g/dL (11.5-16.0); IMMATURE GRAN ABSOLUTE AUTO 0.04 K/mm3 (0.00-0.10); IMMATURE GRAN PERCENT AUTO 1 % (0-1); LYMPHOCYTES ABSOLUTE AUTO 1.48 K/mm3 (0.84-5.20); LYMPHOCYTES PERCENT AUTO 19 % (21-46); MONOCYTES ABSOLUTE AUTO 2.07 K/mm3 (0.16-1.47); MONOCYTES PERCENT AUTO 27 % (4-13); Mean Corpuscular HGB 30.9 pg (26.0-34.0); Mean Corpuscular HGB Conc 31.5 g/dL (31.5-36.5); Mean Corpuscular Volume 98 fL (80-100); Mean Platelet Volume 9.2 fL (9.1-12.4); NEUTROPHILS ABSOLUTE AUTO 3.88 K/mm3 (1.96-9.15); NEUTROPHILS PERCENT AUTO 50 % (41-73); Platelet Count 274 K/mm3 (150-400); RDW Coefficient Variation 16.2 % (11.7-14.2); RDW Standard Deviation 57.2 fL (35.1-46.3); Red Blood Cell Count 3.43 M/mm3 (3.80-5.20); White Blood Cell Count 7.71 K/mm3 (4.00-11.30)
[2024-10-03 13:35] LABS: Albumin/Globulin Ratio 0.7 (0.8-1.8); Bilirubin, Total 0.3 mg/dL (0.1-1.0); Bun/Creatinine Ratio 12.4 (12.0-20.0); Calcium, Blood 9.9 mg/dL (8.5-10.1); Creatinine, Blood 0.89 mg/dL (0.40-1.00); Globulin, Blood 4.5 g/dL (2.2-4.0); Total Protein, Blood 7.5 g/dL (6.4-8.2)
[2024-10-03] MEDS ORDERED: Potassium Chloride 20 MEQ TabCR PO ONE (13:45)
[2024-10-03 13:51] VITALS: BP 99/77
== END 2024-10-03 14:08 | disposition home or self-care (01) ==
LOC: ER 12:14
PROVIDERS: Physician Assistant
DX: E87.6 Hypokalemia (principal); D64.9 Anemia, unspecified; J44.9 Chronic obstructive pulmonary disease, unspecified; I10 Essential (primary) hypertension; F17.210 Nicotine dependence, cigarettes, uncomplicated; Z99.81 Dependence on supplemental oxygen; Z79.899 Other long term (current) drug therapy; Z88.1 Allergy status to other antibiotic agents
CPT/HCPCS: 80053; 83735; 85025; 99283; A9270

== ENCOUNTER 2025-05-06 21:04 | Inpatient (IN) | payer OTHER ==
[~2025-05-06] VITALS: Ht 160 cm; Wt 63.3 kg
[~2025-05-06 21:04] MED LIST changes: -Ventolin/Prove6.7 GM INH
[2025-05-06] MEDS ORDERED: Albuterol 2.5 MG/3 ML VIAL ONE (21:09)
[2025-05-06] MEDS ORDERED: Ipratropium/Albuterol SulF 2.5-0.5MG/3 ML Amp ONE (21:09)
[2025-05-06 21:18] LABS: pH Blood Venous 7.41 (7.34-7.37)
[2025-05-06 21:20] LABS: BASOPHILS ABSOLUTE AUTO 0.06 K/mm3 (0.00-0.23); BASOPHILS PERCENT AUTO 1 % (0-2); EOSINOPHILS ABSOLUTE AUTO 0.30 K/mm3 (0.00-0.68); EOSINOPHILS PERCENT AUTO 3 % (0-6); Hematocrit 24.9 % (33.0-51.0); Hemoglobin 7.6 g/dL (11.5-16.0); IMMATURE GRAN ABSOLUTE AUTO 0.07 K/mm3 (0.00-0.10); IMMATURE GRAN PERCENT AUTO 1 % (0-1); LYMPHOCYTES ABSOLUTE AUTO 0.79 K/mm3 (0.84-5.20); LYMPHOCYTES PERCENT AUTO 9 % (21-46); MONOCYTES ABSOLUTE AUTO 0.17 K/mm3 (0.16-1.47); MONOCYTES PERCENT AUTO 2 % (4-13); Mean Corpuscular HGB Conc 30.5 g/dL (31.5-36.5); Mean Corpuscular Volume 99 fL (80-100); NEUTROPHILS ABSOLUTE AUTO 7.80 K/mm3 (1.96-9.15); NEUTROPHILS PERCENT AUTO 85 % (41-73); NRBC ABSOLUTE 0.00 K/mm3 (0.00-0.02); NRBC Auto 0.0 /100 WBC (0.0-0.2); Platelet Count 200 K/mm3 (150-400); RDW Coefficient Variation 17.3 % (11.7-14.2); RDW Standard Deviation 62.6 fL (35.1-46.3)
[2025-05-06] MEDS ORDERED: Midazolam HCl 1MG / ML 2ML Vial IV ONE (21:20)
[2025-05-06] MEDS ORDERED: NS 1,000 ML IV SCH ×2 (21:25→21:45)
[2025-05-06 21:34] LABS: Alanine Aminotransfer (ALT/SGP 80.0 U/L (12-78); Albumin, Blood 2.1 g/dL (3.4-5.0); Albumin/Globulin Ratio 0.5 (0.8-1.8); Anion Gap 16.0 mmol/L (3-11); Aspartate Aminotrans (AST/SGOT 135.0 U/L (12-37); Bilirubin, Total 0.9 mg/dL (0.1-1.0); Blood Urea Nitrogen 15.0 mg/dL (8-24); CO2, Blood 30.0 mmol/L (21-32); Calcium, Blood 9.0 mg/dL (8.5-10.1); Chloride, Blood 89.0 mmol/L (98-108); Creatinine, Blood 1.32 mg/dL (0.40-1.00); Globulin, Blood 4.6 g/dL (2.2-4.0); Glucose, Blood 205.0 mg/dL (70-99); Potassium, Blood 3.1 mmol/L (3.5-5.5); Sodium, Blood 132.0 mmol/L (136-145); Total Protein, Blood 6.7 g/dL (6.4-8.2)
[2025-05-06] MEDS ORDERED: Potassium Chl 20MEQ/Water100ML 100 ML IV ONE (21:45)
[2025-05-06] MEDS ORDERED: CefTRIAXone Sodium 1,000 MG in NS 50 ML IV ONE (21:45)
[2025-05-06 21:54] LABS: Magnesium, Blood 1.9 mg/dL (1.6-2.4); Phosphorus, Blood 4.3 mg/dL (2.5-4.9)
[2025-05-06 21:58] LABS: D-Dimer, Quantitative 0.72 mg/L FEU (0.00-0.52)
[2025-05-06] MEDS ORDERED: Diazepam 5 MG / ML 2ML SYR IV ONE (22:15)
[2025-05-06] MEDS ORDERED: Diazepam 5 MG / ML 2ML SYR IV PRN (23:15)
[2025-05-06 23:34] LABS: Prothrombin Time Results 13.2 Sec (9.7-11.5)
[2025-05-07] VITALS (11 sets, daily range): BP systolic 93–140; BP diastolic 49–126
[2025-05-07 00:45] LABS: Source, Urine Clean Catch
[2025-05-07 01:03] LABS: Bilirubin, Urine Neg (Neg); Glucose Qualitative, Urine Neg (Neg); Ketones, Urine Neg (Neg); Leukocyte Esterase, Urine Neg (Neg); Protein, Urine 2+ (Neg); Specific Gravity, Urine 1.010 (1.003-1.022); Urobilinogen, Urine 1+ (Normal)
[2025-05-07 01:14] LABS: Color, Urine Yellow (P-Yellow)
[2025-05-07 01:15] LABS: Red Blood Cells, Urine 0-2 /hpf (0-2)
[2025-05-07 01:56] LABS: Influenza A, PCR NEGATIVE (NEGATIVE); Influenza B, PCR NEGATIVE (NEGATIVE); Resp Syncytial Virus, PCR NEGATIVE (NEGATIVE); SARS-Cov-2 (COVID-19) PCR, MMC NEGATIVE (NEGATIVE)
[2025-05-07] MEDS ORDERED: Albuterol 2.5 MG/3 ML VIAL INH PRN (02:15)
[2025-05-07] MEDS ORDERED: Ipratropium/Albuterol SulF 2.5-0.5MG/3 ML Amp INH PRN (02:15)
[2025-05-07 05:31] LABS: BASOPHILS ABSOLUTE AUTO 0.03 K/mm3 (0.00-0.23); BASOPHILS PERCENT AUTO 0 % (0-2); EOSINOPHILS ABSOLUTE AUTO 0.08 K/mm3 (0.00-0.68); EOSINOPHILS PERCENT AUTO 1 % (0-6); Hematocrit 23.9 % (33.0-51.0); Hemoglobin 7.2 g/dL (11.5-16.0); IMMATURE GRAN ABSOLUTE AUTO 0.05 K/mm3 (0.00-0.10); IMMATURE GRAN PERCENT AUTO 1 % (0-1); LYMPHOCYTES ABSOLUTE AUTO 0.77 K/mm3 (0.84-5.20); LYMPHOCYTES PERCENT AUTO 11 % (21-46); MONOCYTES ABSOLUTE AUTO 0.14 K/mm3 (0.16-1.47); MONOCYTES PERCENT AUTO 2 % (4-13); Mean Corpuscular HGB Conc 30.1 g/dL (31.5-36.5); Mean Corpuscular Volume 99 fL (80-100); NEUTROPHILS ABSOLUTE AUTO 5.72 K/mm3 (1.96-9.15); NEUTROPHILS PERCENT AUTO 84 % (41-73); NRBC ABSOLUTE 0.02 K/mm3 (0.00-0.02); NRBC Auto 0.3 /100 WBC (0.0-0.2); Platelet Count 182 K/mm3 (150-400); RDW Coefficient Variation 17.4 % (11.7-14.2); RDW Standard Deviation 62.4 fL (35.1-46.3)
[2025-05-07 06:08] LABS: Anion Gap 12.0 mmol/L (3-11); Blood Urea Nitrogen 16.0 mg/dL (8-24); CO2, Blood 30.0 mmol/L (21-32); Calcium, Blood 7.8 mg/dL (8.5-10.1); Chloride, Blood 94.0 mmol/L (98-108); Creatinine, Blood 1.36 mg/dL (0.40-1.00); Glucose, Blood 153.0 mg/dL (70-99); Potassium, Blood 2.8 mmol/L (3.5-5.5); Sodium, Blood 133.0 mmol/L (136-145)
--- NOTE | 2025-05-07 06:15 | NUR ---
SHIFT SUMMARY PT A&O X4, SHE IS VERY ANXIOUS, COOPERATIVE TO CARE. HR IN THE 120'S, AFIB. SHE DENIES ANY CP/PRESSURE, NUMB/TINGLING, SBP STABLE. O2 >92% ON 2L VIA NC, PT STATES 2-3.5L IS HER BL. SHE HAS SOME SOB AT REST. RT TO BEDSIDE FOR BREATHING TX. PT PLACED ON BIPAP FOR SOB BUT TOOK IT OFF AFTER APPROX 10 MINUTES AND STATED "I CANT WEAR THIS" PT PLACED BACK ON NC O2 IN THE 90'S. SHE HAS A PUREWICK IN PLACE. PT HAD LABS DONE THIS AM, POTASSIUM CAME BACK AT 2.8, CALL PLACED TO PROVIDER, IV POTASSIUM ORDERED, HGB OF 7.2, NO NEW ORDERS. PT RESTING IN BED AT THIS TIME. CALL LIGHT IN REACH. WILL MONITOR PT AND REPORT TO ONCOMING RN.
--- NOTE | 2025-05-07 06:37 | NUR ---
UPDATE REVIEWED RHYTHM WITH TELE. PT APPEARS TO BE IN SINUS TACH WITH A RATE IN THE 120'S. PT STILL DENIES CP/PRESSURE.
[2025-05-07] MEDS ORDERED: NS 250 ML IV PRN (07:25)
[2025-05-07] MEDS ORDERED: HYDHCL25 PO (07:27)
[2025-05-07] MEDS ORDERED: FURO20 PO (07:31)
[2025-05-07] MEDS ORDERED: DULO60 PO (07:31)
[2025-05-07] MEDS ORDERED: SULF500A PO (07:32)
[2025-05-07] MEDS ORDERED: Enoxaparin 40 MG/0.4 ML SYR SC SCH (09:00)
[2025-05-07] MEDS ORDERED: FentaNYL Citrate 50 MCG/ML 2 ML Injection IV PRN (09:30)
[2025-05-07] MEDS ORDERED: Budesonide 0.5 MG/2 ML RESP INH SCH (09:45)
[2025-05-07] MEDS ORDERED: Ondansetron HCl 2 MG / ML 2ML Vial IV PRN (14:10)
[2025-05-07 15:46] LABS: Hematocrit 21.4 % (33.0-51.0); Hemoglobin 6.5 g/dL (11.5-16.0)
[2025-05-07 16:32] LABS: Total Iron Binding Capacity 105.0 ug/dL (250-450)
[2025-05-07 16:35] LABS: Ferritin, Serum 3087.0 ng/mL (8-252)
[2025-05-07] MEDS ORDERED: NS 500 ML IV SCH (17:00)
[2025-05-07] MEDS ORDERED: NS 1,000 ML IV SCH (17:00)
--- NOTE | 2025-05-07 18:33 | NUR ---
SHIFT SUMMARY PT A&OX4, GENERALIZED WEAKNESS. SP02>90% ON 2-3 NC. TELEMETRY SHOWS MAT, HR 90'S-120'S. C/O OF LOWER BACK/HIP PAIN, MEDICATING PER EMAR. NO BM THIS SHIFT. LOW URINE OUTPUT. MD LOCKE NOTIFIED. FLUIDS TO START AFTER PRBC INFUSE. HBG THIS AFTERNOON 6.5, MD LOCKE W/ ORDERS FOR 1 UNIT PRBC, CURRENLTY INFUSING. ECHO DONE. MED REC DONE. NAUSEATED THIS AM, PATRICIAFRAN ORDERED FOR EMAR. SON AND IN ROOM THIS SHIFT. [facility]
[2025-05-07 22:00] LABS: Hematocrit 26.7 % (33.0-51.0); Hemoglobin 8.5 g/dL (11.5-16.0)
[2025-05-08] VITALS (7 sets, daily range): BP systolic 117–159; BP diastolic 67–104
[2025-05-08 04:30] LABS: Hematocrit 27.4 % (33.0-51.0); Hemoglobin 8.4 g/dL (11.5-16.0); Mean Corpuscular HGB Conc 30.7 g/dL (31.5-36.5); Mean Corpuscular Volume 97 fL (80-100); NRBC ABSOLUTE 0.03 K/mm3 (0.00-0.02); NRBC Auto 0.7 /100 WBC (0.0-0.2); Platelet Count 147 K/mm3 (150-400); RDW Coefficient Variation 18.7 % (11.7-14.2); RDW Standard Deviation 64.1 fL (35.1-46.3)
[2025-05-08 05:09] LABS: Alanine Aminotransfer (ALT/SGP 67.0 U/L (12-78); Albumin, Blood 2.2 g/dL (3.4-5.0); Albumin/Globulin Ratio 0.6 (0.8-1.8); Anion Gap 6.0 mmol/L (3-11); Aspartate Aminotrans (AST/SGOT 124.0 U/L (12-37); Bilirubin, Total 0.9 mg/dL (0.1-1.0); Blood Urea Nitrogen 23.0 mg/dL (8-24); CO2, Blood 30.0 mmol/L (21-32); Calcium, Blood 8.2 mg/dL (8.5-10.1); Chloride, Blood 97.0 mmol/L (98-108); Creatinine, Blood 1.39 mg/dL (0.40-1.00); Globulin, Blood 4.0 g/dL (2.2-4.0); Glucose, Blood 91.0 mg/dL (70-99); Potassium, Blood 3.8 mmol/L (3.5-5.5); Sodium, Blood 129.0 mmol/L (136-145); Total Protein, Blood 6.2 g/dL (6.4-8.2)
[2025-05-08 05:55] LABS: BAND PERCENT MAN 2 % (0-8); BASOPHILS ABSOLUTE MAN 0.00 K/mm3 (0.00-0.23); BASOPHILS PERCENT MAN 0 % (0-2); EOSINOPHILS ABSOLUTE MAN 0.04 K/mm3 (0.00-0.68); EOSINOPHILS PERCENT MAN 1 % (0-6); LYMPHOCYTES ABSOLUTE MAN 0.86 K/mm3 (0.84-5.20); LYMPHOCYTES PERCENT MAN 21 % (21-46); MONOCYTES ABSOLUTE MAN 0.08 K/mm3 (0.16-1.47); MONOCYTES PERCENT MAN 2 % (4-13); NEUTROPHILS ABSOLUTE MAN 3.13 K/mm3 (1.96-9.15); SEG NEUTROPHILS PERCENT MAN 74 % (41-73)
--- NOTE | 2025-05-08 06:27 | NUR ---
END OF SHIFT NOTE PT COMPLETED UNIT OF PRBC AT START OF SHIFT. NIGHT MD ORDERED HGT/HCT ONE HOUR POST TRANSFUSION THEN START THE 500 CC BOLUS OF NS FOLLOWED BY NS AT 50. PT VOIDING SCOTT URINE, PT POSITIONED W TECH, TRAMADOL GIVEN TIMES ONE FOR BACK PAIN AT 0000. PT MAINTAINED SATS ON 2 LITERS NC OVERNIGHT. HEART RATE IN 90-LOW 100'S OVERNIGHT. PT HAS PT EVAL TODAY FOR DC PLANNING.
--- NOTE | 2025-05-08 08:18 | NUR ---
AT ~0730, PT BEGAN TO EXPERIENCE ACUTE ANXIETY ATTACK. DESATURATED TO MID 70s ON 5 L O2 VIA NC. BP ELEVATED. DEMONSTRATING TACHYPNEA, DYSPNEA, SHALLOW BREATHING, ETC. SAT UPRIGHT, IMPLEMENTED HIGH FLOW NC @ 10 L O2, AND ADMINISTERED IV VALIUM. AFTER FEW MINUTES OF THIS PT WAS ABLE TO RECOVER AND MAINTAIN SATS >95%. EXPERIENCED TACHYPNEA/DYSPNEA FOR FEW MORE MINUTES DESPITE THIS. LOTS OF EDUCATION PROVIDED ON OPTIMIZATION OF SUPPLEMENTAL O2. WAS ABLE TO BE TITRATED DOWN TO 3 L O2 VIA NC WITH SATS >94% SINCE. NOW EATING BREAKFAST WITH ONLY MINIMAL ANXIETY. CONTINUING TO MONITOR.
[2025-05-08] MEDS ORDERED: DULoxetine HCL 60 MG Capsule DR PO SCH (09:00)
[2025-05-08] MEDS ORDERED: Folic Acid 1 MG TAB PO SCH (09:00)
--- NOTE | 2025-05-08 17:03 | NUR ---
SHIFT SUMMARY. SHIFT HAS GONE WELL SINCE THIS MORNING. PT DID EXPERIENCE ACUTE ANXIETY ATTACK THIS MORNING, SEE PREVIOUS NOTE FOR DETAILS. SINCE THAT TIME, HAS BEEN AOX3-4, COOPERATIVE, ABLE TO MAKE NEEDS KNOWN. HAS DENIED PAIN THROUGHOUT SHIFT. HAS BEEN ABLE TO BE TITRATED DOWN TO 1.5 L O2 VIA NC AND MAINTAIN SATURATION >95%. VITALS STABLE OTHERWISE. 1PA TRANSFER TO CHAIR, PUT IN CHAIR FOR DINNER PER DIRECTION OF DR. LOCKE. PT HAS PO ATARAX AND VALIUM ORDERED PRN PER EMAR, HAVE YET TO NEEDS PO VALIUM BUT HAVE ADMINISTERED PO ATARAX 2X PER EMAR. OTHERWISE SHIFT HAS GONE WELL. BED LOCKED IN LOWEST POSITION. CALL LIGHT LEFT WITHIN REACH. CONTINUING TO MONITOR.
--- NOTE | 2025-05-08 22:15 | NUR ---
TRANSFER NOTE PT A/O X 4. ON O2 PER NC AT 1.5L/MIN. REPORT GIVEN TO MEDICAL FLOOR NURSE. TRANSPORETD TO 3RD FLOOR, ROOM 4. CALL LIGHT IN REACH. MEDICAL NURSE AT BEDSIDE TO RECEIVE PT.
[2025-05-09 00:29] VITALS: BP 137/89
--- NOTE | 2025-05-09 04:21 | NUR ---
SHIFT SUMM: PT WAS A TRANSFER THIS SHIFT FROM PCU. PT HAS BEEN RELAXING AND HAS BEEN MEDICATED FOR ANXIETY THIS SHIFT. PT IS ON 2L NC AND HAS RECIEVED A BREATHING TREATMENT UPON REQUEST. PT HAS BEEN UP TO THE BSC WITH A 1 PERSON ASSIST. PT HAD A VERY SCANT BM. PT HAS CALL LIGHT IN REACH AND BED LOW AND LOCKED.
[2025-05-09 07:21] VITALS: BP 126/70
--- NOTE | 2025-05-09 07:39 | NUR ---
ASSUMPTION OF CARE: THIS RN ASSUMED CARE OF PATIENT c ORIENTING FRANCISCO NINO. AWAKE DURING SHIFT CHANGE REPORT. LYING IN BED. BREATHING EVEN AND UNLABORED c ROOM AIR c 2LPM/NC. MOST RECENT TELE STRIP IN CHART READS SINUS c PVCs AND PACs @ 93bpm. NS @ 50mL/hr. BED IN LOWEST POSITION. CALL LIGHT WITHIN REACH. ACUTE NEEDS MET.
[2025-05-09 11:28] VITALS: BP 137/101
[2025-05-09 11:29] VITALS: BP 148/86
[2025-05-09] MEDS ORDERED: TRAM50 PO (12:24)
[2025-05-09] MEDS ORDERED: SENN187 PO (12:26)
[2025-05-09] MEDS ORDERED: PRED20 PO (12:43)
[2025-05-09] MEDS ORDERED: ACET500 PO (13:06)
[2025-05-09] MEDS ORDERED: Vitamin D1000 UNI1 PO (13:27)
--- NOTE | 2025-05-09 15:10 | NUR ---
DISCHARGE SUMMARY: A&OX4 THROUGHOUT SHIFT. ABLE TO TRANSFER AROUND ROOM WITH A 1P ASSIST. DISCHARGE PACKET AND EDUCATION PROVIDED TO PATIENT. MEDICATIONS FAXED TO PHARMACY. PT DISCHARGED VIA WHEELCHAIR AND ESCORTED OUT BY STAFF. VSS AT TIME OF DISCHARGE. WENT HOME WITH HOME O2 FOR O2 SUPPLEMENT. DENIED CHEST PAIN OR SHORTNESS OF BREATH.
== END 2025-05-09 14:44 | disposition home health service (06) | DRG 189 ==
LOC: ER 21:04 → PCU 21:05 → ERHOLD 21:05 → PCU 05-07 04:49 → MEDS 05-08 21:57
PROVIDERS: Emergency Medicine; Family Medicine; Internal Medicine; Student in an Organized Health Care Education/Training Program; ADMIT Internal Medicine
PROC: 5A09357 Assistance with Respiratory Ventilation, Less than 24 Consecutive Hours, Continuous Positive Airway Pressure (ICD-10-PCS; principal; 2025-05-07)
PROC: 30233N1 Transfusion of Nonautologous Red Blood Cells into Peripheral Vein, Percutaneous Approach (ICD-10-PCS; 2025-05-07)
DX: J96.21 Acute and chronic respiratory failure with hypoxia (principal); S22.080A Wedge compression fracture of T11-T12 vertebra, initial encounter for closed fracture; E87.20 Acidosis, unspecified; J44.1 Chronic obstructive pulmonary disease with (acute) exacerbation; E87.1 Hypo-osmolality and hyponatremia; N17.9 Acute kidney failure, unspecified; J44.9 Chronic obstructive pulmonary disease, unspecified; Z99.81 Dependence on supplemental oxygen; M06.9 Rheumatoid arthritis, unspecified; I48.91 Unspecified atrial fibrillation; E86.0 Dehydration; N20.0 Calculus of kidney; F10.90 Alcohol use, unspecified, uncomplicated; F41.9 Anxiety disorder, unspecified; R54 Age-related physical debility; N18.30 Chronic kidney disease, stage 3 unspecified; I12.9 Hypertensive chronic kidney disease with stage 1 through stage 4 chronic kidney disease, or unspecified chronic kidney disease; R94.31 Abnormal electrocardiogram [ECG] [EKG]; D63.1 Anemia in chronic kidney disease; F17.210 Nicotine dependence, cigarettes, uncomplicated; Z96.641 Presence of right artificial hip joint; Z98.890 Other specified postprocedural states; Z98.51 Tubal ligation status; Z79.2 Long term (current) use of antibiotics; Z79.51 Long term (current) use of inhaled steroids; Z79.52 Long term (current) use of systemic steroids; Z79.899 Other long term (current) drug therapy; W18.30XA Fall on same level, unspecified, initial encounter
CPT/HCPCS: 36415; 36430; 71045; 71260; 73560-RT; 74177; 80048; 80053; 81001; 82565; 82607; 82728; 82746; 82803; 83540; 83550; 83605; 83735; 83880; 84100; 84145; 84484; 85014; 85018; 85025; 85379; 85610; 85730; 86850; 86900; 86901; 86923; 87637; 93005; 93010; 93306; 94640; 94644; 94660; 94664; 94760; 94762; 96365; 96375; 96376; 97162; 97530; 99285-25; A6590; A9270; G0378; J0456; J0696; J1650; J2250; J2405; J3360; J3480; J7030; J7040; J7050; J7512; P9016; Q9967